=== PATIENT | male | born 1970 | race Caucasian/White ===

== ENCOUNTER → 2022-07-21 15:27 | Outpatient (BNVA) | payer OTHER, SELFPAY | PROVIDERS: PCP Nurse Practitioner Family; Visit Provider Urology | DX: Z13.89 Encounter for screening for other disorder (principal) ==

== ENCOUNTER → 2022-08-27 13:52 | Outpatient (BNVA) | payer OTHER, SELFPAY | PROVIDERS: PCP Nurse Practitioner Family; Visit Provider Urology | DX: Z30.2 Encounter for sterilization (principal); F41.8 Other specified anxiety disorders | CPT/HCPCS: 55250 ==

== ENCOUNTER 2022-09-22 07:27 | Outpatient (REF) | payer OTHER, SELFPAY ==
[2022-09-22 11:23] LABS: MANUAL DIFF FLAG NO
[2022-09-22 11:36] LABS: Basophils Percent Auto 0.5 % (0-2); Eosinophils Absolute Auto 0.2 X10*3/uL (0.0-0.4); Eosinophils Percent Auto 2.8 % (0-4); Hematocrit 44.5 % (42.0-52.0); Hemoglobin 14.4 g/dl (14.0-18.0); Imm Gran Abs Auto 0.02 X10*3/uL (0.00-0.03); Imm Gran Pct Auto 0.3 % (0.0-0.4); Lymphocytes Absolute Auto 2.6 X10*3/uL (1.2-4.9); Lymphocytes Percent Auto 35.4 % (20-40); Mean Corpuscular HGB Conc 32.4 g/dl (31.0-36.0); Mean Corpuscular Hemoglobin 30.4 pg (27.0-33.0); Mean Corpuscular Volume 93.9 fL (80.0-98.0); Mean Platelet Volume 11.1 fL (9.4-12.4); Monocytes Absolute Auto 0.6 X10*3/uL (0.1-1.2); Monocytes Percent Auto 7.8 % (2-11); Neutrophils Absolute Auto 3.9 x10*3/uL (2.0-8.3); Neutrophils Percent Auto 53.2 % (45-73); Platelet Count 191 X10*3/uL (160-400); Red Blood Count 4.74 X10*6/uL (4.60-5.80); Red Cell Distribution Width 13.3 % (11.0-16.0); White Blood Count 7.4 X10*3/uL (4.8-10.8)
[2022-09-22 11:49] LABS: Appearance Urine Clear; Color Urine Dark Yellow; Glucose Urine UA Negative (Negative); Leukocyte Esterase Urine Negative (Negative); Nitrite Urine Negative (Negative); PH 5.5 (5.0-9.0); Specific Gravity - Urine >= 1.030 (1.005-1.025); UMIC TRIGGER UACC YES; Urine Blood Negative (Negative); Urine Ketones Trace mg/dL (Negative); Urine Protein 100 (2+) mg/dL (Neg-Trace)
[2022-09-22 11:52] LABS: Bacteria Urine None Seen (None Seen); RBC Urine 0-2 /HPF (0-2); Squamous Epithelial Cell Urine 0-2 /HPF (0-2); WBC Urine 0-5 /HPF (0-5)
[2022-09-22 12:12] LABS: Alanine Aminotransferase 97 U/L (0-40); Albumin Level 3.9 g/dL (3.5-5.0); Alkaline Phosphatase 67 U/L (39-117); Anion Gap 12 (12-20); Aspartate Amino Transferase 41 U/L (5-37); Bilirubin Total 0.8 mg/dL (0.0-1.0); Blood Urea Nitrogen 17 mg/dL (9-16); Calcium 9.4 mg/dL (8.4-10.2); Carbon Dioxide 28 mmol/L (22-29); Chloride 106 mmol/L (96-108); Cholesterol 140 mg/dL; Estimated Glomerular Filt Rate > 60; Glucose Fasting 84 mg/dL (60-99); HDL Cholesterol 43 mg/dL; LDL Cholesterol Calculated 86 mg/dl; Sodium 142 mmol/L (135-145); Total Protein 6.1 g/dL (6.5-8.0); Triglycerides 59 mg/dL
[2022-09-22 12:19] LABS: TSH reflex Free T4 21.61 uIU/mL (0.32-4.0)
[2022-09-22 12:27] LABS: Prostate Specific Antigen Scr 0.75 ng/mL (<0.05-4.0)
[2022-09-22 13:27] LABS: Free T4 (Free Thyroxine) 1.21 ng/dL (0.71-1.85)
== END 2022-09-22 07:28 | disposition home or self-care (01) ==
LOC: HO.HMGCLDS 07:27
PROVIDERS: PCP Nurse Practitioner Family; Visit Provider Nurse Practitioner Family
DX: Z00.00 Encounter for general adult medical examination without abnormal findings (principal); Z12.5 Encounter for screening for malignant neoplasm of prostate; R94.6 Abnormal results of thyroid function studies; R00.1 Bradycardia, unspecified
CPT/HCPCS: 36415; 80053; 80061; 81001; 84153; 84439; 84443; 85025

== ENCOUNTER 2022-10-13 07:47 | Outpatient (REF) | payer OTHER, SELFPAY ==
--- NOTE | ~2022-10-13 | US_ITS ---
EXAMINATION: US ABDOMEN COMPLETE CLINICAL INFORMATION: Abnormal levels of other serum enzymes. COMPARISON: None available. TECHNIQUE: Real-time imaging of the abdominal viscera. FINDINGS: PANCREAS: Visualized portions of the pancreas are unremarkable. The pancreatic tail is obscured by bowel gas. ABDOMINAL AORTA: Visualized aorta is normal in caliber however portions are obscured by bowel gas. INFERIOR VENA CAVA: Visualized portions are normal. LIVER: Normal. The liver is normal in size. The liver contour is normal. Parenchymal echogenicity is normal. No focal hepatic lesion. There is no intrahepatic biliary duct dilatation seen. GALLBLADDER: Normal. The gallbladder is physiologically distended without evidence of stones, sludge, polyps, wall thickening or pericholecystic fluid. COMMON BILE DUCT: Normal in caliber measuring 0.3 cm in diameter. RIGHT KIDNEY: Normal. No hydronephrosis. No renal calculi or focal parenchymal lesions. The kidney measures 11.5 cm in maximum dimension. LEFT KIDNEY: Normal. No hydronephrosis. No renal calculi or focal parenchymal lesions. The kidney measures 11.7 cm in maximum dimension. SPLEEN: Normal. The spleen measures 10.7 cm in maximum dimension. FREE FLUID: None. US/US abdomen complete IMPRESSION: Portions of the pancreas and aorta were obscured by bowel gas. Otherwise unremarkable abdominal ultrasound.
== END 2022-10-13 07:48 | disposition home or self-care (01) ==
LOC: HO.US 07:47
PROVIDERS: PCP Nurse Practitioner Family; Visit Provider Nurse Practitioner Family
DX: R74.8 Abnormal levels of other serum enzymes (principal)
CPT/HCPCS: 76700

== ENCOUNTER 2022-10-15 13:26 | Outpatient (REF) | payer OTHER, SELFPAY ==
[2022-10-15 16:39] LABS: Appearance Urine Turbid; Color Urine Dark Yellow; Glucose Urine UA Negative (Negative); Leukocyte Esterase Urine Negative (Negative); Nitrite Urine Negative (Negative); PH 5.5 (5.0-9.0); Specific Gravity - Urine >= 1.030 (1.005-1.025); Urine Blood Negative (Negative); Urine Ketones Trace mg/dL (Negative); Urine Protein Negative (Neg-Trace)
[2022-10-16 05:15] LABS: HBc Num1 0.07 S/CO (0.00-0.79); HBsAGNum1 0.36 S/CO (0.00-0.99); Hepatitis A Antibody IgM 0.24 Index (0-0.79); Hepatitis B Core Antibody Nonreactive (Nonreactive); Hepatitis B Surface Antigen Negative (Negative); ~HepC Num1 0.06 S/CO (0.00-0.79); ~Hepatitis A Antibody IgM Nonreactive (Nonreactive); ~Hepatitis B Surface Antibody NONREACTIVE (Nonreactive); ~Hepatitis C Antibody Nonreactive (Nonreactive)
== END 2022-10-15 13:27 | disposition home or self-care (01) ==
LOC: HO.HMGCLDS 13:26
PROVIDERS: PCP Nurse Practitioner Family; Visit Provider Nurse Practitioner Family
DX: R80.9 Proteinuria, unspecified (principal); R74.8 Abnormal levels of other serum enzymes
CPT/HCPCS: 36415; 81003; 86704; 86706; 86709; 86803; 87340

== ENCOUNTER 2022-10-17 08:00 | Outpatient (REF) | payer OTHER, SELFPAY ==
[2022-10-17 18:02] LABS: Creatinine, mg/dL 133.28; Protein mg/dL < 7 mg/dL
[2022-10-17 18:46] LABS: Creatinine, 24Hr Urine 2.1 G/Day (1.0-2.0); Protein 24 Hr Urine < 112 mg/Day (<150); Total Volume 24 Hour Urine 1600 mL
== END 2022-10-17 08:01 | disposition home or self-care (01) ==
LOC: HO.HMGCLNP 08:00
PROVIDERS: PCP Nurse Practitioner Family; Visit Provider Nurse Practitioner Family
DX: R80.9 Proteinuria, unspecified (principal)
CPT/HCPCS: 84156

== ENCOUNTER 2023-01-04 09:04 | Outpatient (REF) | payer OTHER, SELFPAY ==
[2023-01-04 12:29] LABS: TSH reflex Free T4 7.51 uIU/mL (0.32-4.0)
== END 2023-01-04 09:05 | disposition home or self-care (01) ==
LOC: HO.HMGCLDS 09:04
PROVIDERS: PCP Nurse Practitioner Family; Visit Provider Nurse Practitioner Family
DX: R94.6 Abnormal results of thyroid function studies (principal)
CPT/HCPCS: 36415; 84439; 84443

== ENCOUNTER 2023-06-21 13:52 | Outpatient (AMB) | payer BC, SELFPAY ==
[2023-06-21 13:57] VITALS: BP 122/74; PULSE 46; O2SAT 96; BMI 34.7
--- NOTE | 2023-06-21 13:57 | A.OFFPC_ITS ---
Vital Signs 06/21/23 13:57 Height 6 ft 3 in Weight 278 lb BMI 34.7 BP 122/74 Blood Pressure Location Lt brachial Position Sitting Pulse 46 L Pulse Source Pulse Oximeter Pulse Oximetry (%) 96 Oxygen Delivery Method Room Air Intake Visit Reasons: PE Intake Note: pt is here for annual exam, patient states he has a concern of head pain on left side. pt states last colonocopy was done at [facility] last year Director Medical Required: No Accompanied by: Self / Same As Patient Allergies codeine Allergy (Mild, Verified 06/21/23 16:39) Hives Sulfa (Sulfonamide Antibiotics) Allergy (Mild, Verified 06/21/23 16:39) Hives Medication List - Last Reconciled 06/21/23 by Erick Schaefer, BROADCAST JOURNALIST- amlodipine 10 mg PO DAILY atorvastatin 40 mg PO BEDTIME 90 days levothyroxine 200 mcg PO DAILY levothyroxine 25 mcg PO DAILY metoprolol succinate ER 12.5 mg (1/2 x 25 mg) PO DAILY 90 days [id number] [id number] mcg (Centrum Silver Men) 1 tab PO DAILY 90 days Tobacco use date assessed: 06/21/23 Dental Screening Dental Screen Date: 06/21/23 Did you have a dental visit in the last 12 months?: No Did you have a dental problem in the last 6 months where you did not have access to dental care?: No Was dental information given to patient?: Patient declined HPI PE HPI Details Pt is here for a PE. Will order labs. Colon screen is up to date. PSA is up to date. Denies dribbling with urination, weak stream, and frequent nocturia. Pt has a hx of 1st degree AV block and RBBB. He reports that he has seen cardiology for this in the past, will track down notes. Will refer back to cardiology. Pt's blood pressure is stable today, pt is bradycardic. Will stop metoprolol and start losartan 25mg. Denies chest pain, shortness of breath, headache, dizziness, and blurred vision. TSH was elevated. Pt is taking levothyroxine 225mcg. He reports taking this regularly. +1 pitting edema to BLE, ? if related to amlodipine. Highly encouraged pt to get his labs drawn in the near future. Will refer for LDCT (pack per day since age 14). [facility] Medical History (Updated 06/21/23 @ 14:58 by FAM Resendiz) RBBB Hx of thyroid irradiation Graves disease Surgical History No pertinent past surgical history Social History Housing: House Patient Tobacco Use Status: Current everyday Tobacco user Cigarettes Per Day: 15 e-Cigarette/Vaping Use: Never Used Second Hand Smoke Exposure: Yes service: No Current occupational status: employed Current occupation: [employer] Current occupational exposures/hazards: Yes Cognitive needs: No Hearing needs: No Vision needs: No Questionnaire PHQ-9 Over the last 2 weeks, how often have you been bothered by any of the following problems? 1. Little interest or pleasure in doing things: not at all 2. Feeling down, depressed, or hopeless: not at all 3. Trouble falling or staying asleep, or sleeping too much: not at all 4. Feeling tired or having little energy: not at all 5. Poor appetite or overeating: not at all 6. Feeling bad about yourself - or that you are a failure or have let yourself or your family down: not at all 7. Trouble concentrating on things, such as reading the newspaper or watching television: not at all 8. Moving or speaking so slowly that other people could have noticed. Or the opposite - being so fidgety or restless that you have been moving around a lot more than usual: not at all 9. Thoughts that you would be better off or of hurting yourself in some way: not at all Total score: 0 Depression Screening Interpretation: Negative Depression Screening Done: Yes 22170 - PHQ-9 Billing: Yes Source: Developed by Drs. Jonathan Shin, Nery Brennan, Shadi Leon and colleagues, with an educational robyn from [employer] Thrive Questionnaire Date Thrive assessed: 06/21/23 I am a: Patient What is your living situation today?: I have a steady place to live Within the past 12 months, did the food you bought not last and you didn't have the money to get more?: Never true Within the past 12 months, did you worry whether your food would run out before you got money to buy more?: Never true Do you have trouble paying for medicines?: No Do you have trouble getting transportation to medical appointments?: No Do you have trouble paying your heating and electricity bill?: No Do you have trouble taking care of your child, family member or friend?: No Do you have trouble with day-to-day activities such as bathing, preparing meals, shopping, managing finances, etc.?: No Are you currently unemployed and looking for a job?: No Are you interested in more education?: No Please select the resources that you would like help with: None Currently or been in a relationship where the following occur: no concerns reported THRIVE Score: 0 PAULA-7 AMB Questionnaire PAULA-7 Date PAULA - 7 assessed: 06/21/23 Feeling nervous, anxious, or on edge: 0 = Not at all Not being able to stop or control worryin = Not at all Worrying too much about different things: 0 = Not at all Trouble relaxin = Not at all Being so restless that it is hard to sit still: 0 = Not at all Becoming easily annoyed or irritable: 3 = Nearly every day Feeling afraid as if something awful might happen: 0 = Not at all Total PAULA-7 score (0-4 normal; 5-9 mild; 10-14 moderate; 15-21 severe): 3 Source: Developed by Drs. Jonathan Shin, Nery Brennan, Shadi Leon and colleagues, with an educational robyn from [employer] PAULA-7 Assessment Billing PAULA-7 Assessment Tool: PAULA-7 Assessment 91731 Review of Systems Const Denies chills and Denies fever(s) Eyes Denies blurry vision ENT Denies vertigo, Denies dizziness and Denies sore throat Card Denies chest pain at rest, Denies chest pain with activity, Denies diaphoresis, Denies dyspnea and Denies dyspnea on exertion Resp Denies cough, Denies dyspnea, Denies dyspnea on exertion and Denies wheezing GI Denies abdominal pain, Denies melena, Denies hematochezia, Denies constipation, Denies diarrhea and Denies loose stools Denies hematuria Musc Denies numbness and Denies tingling Skin/Breast Denies lesions Neuro Denies vertigo, Denies dizziness, Denies numbness and Denies tingling Psych Denies anxiety, Denies depression, Denies homicidal ideation, Denies suicidal ideation and Denies other (substance abuse) Aller/Immun Denies wheezing Physical exam (Primary Care) Vital Signs: Last Vital Signs Pulse 46 L 06/21/23 13:57 BP 122/74 06/21/23 13:57 Pulse Ox 96 06/21/23 13:57 Oxygen Delivery Method Room Air 06/21/23 13:57 BMI result Body Mass Index 34.7 Tobacco/Smoking Status: Tobacco use Status Tobacco use date assessed 06/21/23 06/21/23 13:58 Patient Tobacco Use Status Current everyday Tobacco 06/21/23 13:58 e-Cigarette/Vaping Use Never Used 06/21/23 13:58 PHQ-9: PHQ-9 Score PHQ-9: Total score 0 06/21/23 14:11 Depression Screening Interpretation: Negative Thrive Assessment: Date of Thrive Assessment Date Thrive assessed 06/21/23 06/21/23 14:08 Currently or been in a relationship where the following occur: no concerns reported Const General: cooperative Nutritional Appearance: obese Orientation/consciousness: patient oriented x3 HENMT Head: Yes normal to inspection, Yes normocephalic and Yes atraumatic Ears: TM's normal bilaterally Eyes General: appearance normal, both eyes and all related structures Alignment and Position: alignment normal and position normal Neck Neck: Yes normal visual inspection and Yes no lymphadenopathy Thyroid: Thyroid normal Resp Effort & Inspection: normal respiratory effort Auscultation: clear to auscultation bilaterally and diminished lung sounds Cardio Rate: bradycardic Heart sounds: S1 normal heart sound present, S2 normal heart sound present and no murmurs GI Palpation (GI): Soft to palpation and nontender Auscultation: normal bowel sounds Skin Rashes: no rashes Neuro General: patient oriented x3, moves all extremities, no focal motor deficits and deep tendon reflexes 2+ bilaterally Romberg Test: Negative Extrem Right lower extremity: edema Details: pitting and 1+ Left lower extremity: edema Details: pitting and 1+ Psych Appearance: grossly normal Mental Status: mental status grossly normal Speech and movement: Normal speech and movement present Affect: normal affect Attitude: cooperative Thought process: Normal thought process present Thought content: Normal thought content present Insight: Good insight present (Psych) Judgement: Good judgement present (Psych) Assessment and Plan Assessment & Plan (1) Smoker: Code(s): F17.200 - Nicotine dependence, unspecified, uncomplicated Plan: Referred to thoracic (2) Physical exam: Code(s): Z00.00 - Encounter for general adult medical examination without abnormal findings Plan: Labs ordered (3) RBBB: Code(s): I45.10 - Unspecified right bundle-branch block Plan: Referred to cardiology (4) Bradycardia: Code(s): R00.1 - Bradycardia, unspecified Plan: Referred to cardiology, EKG performed Plan The patient agreed to the use of a medical insurance collector for this encounter. Scribed for FAM Moses by Audelia Aparicio medical insurance collector, on 06/21/2023 at 14:10 EST. Orders: Orders Complete Blood Count Auto Diff Today Z00.00 - Encounter for general adult medical examination without abnormal findings TSH reflex Free T4 Today Z00.00 - Encounter for general adult medical examination without abnormal findings UA CC w/rflx Micro + Cult Today Z00.00 - Encounter for general adult medical examination without abnormal findings Lipid Panel Today Z00.00 - Encounter for general adult medical examination without abnormal findings Comprehensive [place]. Panel Fast Today Z00.00 - Encounter for general adult medical examination without abnormal findings Prostate Specific Antigen Scr Today Z12.5 - Encounter for screening for malignant neoplasm of prostate AMB EKG-In Office Today Z00.00 - Encounter for general adult medical examination without abnormal findings Referrals Thoracic Surgery Referral F17.200 - Nicotine dependence, unspecified, uncomplicated Cardiology Referral I45.10 - Unspecified right bundle-branch block, R00.1 - Bradycardia, unspecified Medications: New losartan 25 mg PO DAILY 90 tabs 0RF 90 days Refilled amlodipine 10 mg PO DAILY 90 tabs 1RF atorvastatin 40 mg PO BEDTIME 90 tabs 1RF 90 days levothyroxine take with levothyroxine 25mcg daily to equal 225mcg 200 mcg PO DAILY 90 tabs 0RF levothyroxine to take this with his 200mcg dose for a total of 225mcg daily 25 mcg PO DAILY 90 tabs 0RF Discontinued metoprolol succinate ER Discontinued Reason: Doctor's Order 12.5 mg (1/2 x 25 mg) PO DAILY 90 days 45 tabs 1RF diazepam Take medication after arrival at office Discontinued Reason: Doctor's Order 2 mg PO BID 1 day PRN 2 tabs 0RF anxiety F41.8 - Other specified anxiety disorders Coding Level of Care Code Est Pt Prev Care 40-64y(08787) Diagnoses Smoker F17.200 Physical exam Z00.00 RBBB I45.10 Bradycardia R00.1 Additional Codes PAULA-7 Assessment Billing - PAULA-7 Assessment Tool: PAULA-7 Assessment 36529 ([id number])
== END 2023-06-21 15:18 | disposition home or self-care (01) ==
PROVIDERS: Visit Provider Nurse Practitioner Family
DX: Z00.00 Encounter for general adult medical examination without abnormal findings (principal); F17.210 Nicotine dependence, cigarettes, uncomplicated; I45.10 Unspecified right bundle-branch block; R00.1 Bradycardia, unspecified
CPT/HCPCS: 93000; 99396

== ENCOUNTER 2023-06-28 06:17 | Outpatient (REF) | payer BC, SELFPAY ==
[2023-06-28 11:16] LABS: Appearance Urine Clear; Color Urine Yellow; Glucose Urine UA Negative (Negative); Leukocyte Esterase Urine Negative (Negative); Nitrite Urine Negative (Negative); PH 5.5 (5.0-9.0); Specific Gravity - Urine 1.015 (1.005-1.025); Urine Blood Negative (Negative); Urine Ketones 15 mg/dL (Negative); Urine Protein Negative (Neg-Trace)
[2023-06-28 11:18] LABS: MANUAL DIFF FLAG NO
[2023-06-28 11:30] LABS: Basophils Percent Auto 0.5 % (0-2); Eosinophils Absolute Auto 0.2 X10*3/uL (0.0-0.4); Eosinophils Percent Auto 2.6 % (0-4); Hematocrit 48.6 % (42.0-52.0); Hemoglobin 16.1 g/dl (14.0-18.0); Imm Gran Abs Auto 0.02 X10*3/uL (0.00-0.03); Imm Gran Pct Auto 0.3 % (0.0-0.4); Lymphocytes Absolute Auto 1.9 X10*3/uL (1.2-4.9); Lymphocytes Percent Auto 25.5 % (20-40); Mean Corpuscular HGB Conc 33.1 g/dl (31.0-36.0); Mean Corpuscular Hemoglobin 30.6 pg (27.0-33.0); Mean Corpuscular Volume 92.2 fL (80.0-98.0); Mean Platelet Volume 11.3 fL (9.4-12.4); Monocytes Absolute Auto 0.6 X10*3/uL (0.1-1.2); Monocytes Percent Auto 7.8 % (2-11); Neutrophils Absolute Auto 4.8 x10*3/uL (2.0-8.3); Neutrophils Percent Auto 63.3 % (45-73); Platelet Count 184 X10*3/uL (160-400); Red Blood Count 5.27 X10*6/uL (4.60-5.80); Red Cell Distribution Width 12.7 % (11.0-16.0); White Blood Count 7.6 X10*3/uL (4.8-10.8)
[2023-06-28 12:52] LABS: Prostate Specific Antigen Scr 1.16 ng/mL (<0.05-4.0)
[2023-06-28 13:00] LABS: Alanine Aminotransferase 37 U/L (0-40); Albumin Level 4.3 g/dL (3.5-5.0); Alkaline Phosphatase 73 U/L (39-117); Anion Gap 12 (12-20); Aspartate Amino Transferase 28 U/L (5-37); Bilirubin Total 0.8 mg/dL (0.0-1.0); Blood Urea Nitrogen 14 mg/dL (9-16); Calcium 9.4 mg/dL (8.4-10.2); Carbon Dioxide 27 mmol/L (22-29); Chloride 107 mmol/L (96-108); Cholesterol 145 mg/dL (<200); Estimated Glomerular Filt Rate > 60; Glucose Fasting 87 mg/dL (60-99); HDL Cholesterol 56 mg/dL (>40); LDL Cholesterol Calculated 74 mg/dL (<100); Sodium 142 mmol/L (135-145); Total Protein 6.8 g/dL (6.5-8.0); Triglycerides 76 mg/dL (<150)
[2023-06-28 13:24] LABS: TSH reflex Free T4 1.24 uIU/mL (0.32-4.0)
== END 2023-06-28 06:18 | disposition home or self-care (01) ==
LOC: HO.HMGCLDS 06:17
PROVIDERS: PCP Nurse Practitioner Family; Visit Provider Nurse Practitioner Family
DX: Z00.00 Encounter for general adult medical examination without abnormal findings (principal); Z12.5 Encounter for screening for malignant neoplasm of prostate; R94.6 Abnormal results of thyroid function studies; R74.8 Abnormal levels of other serum enzymes
CPT/HCPCS: 36415; 80053; 80061; 81003; 84153; 84443; 85025

== ENCOUNTER 2023-07-23 08:52 | Outpatient (AMB) | payer BC, SELFPAY ==
--- NOTE | 2023-07-23 07:47 | MHC.OFFVIS ---
Intake Visit Reasons: Current Smoker Allergies codeine Allergy (Mild, Verified 06/21/23 16:39) Hives Sulfa (Sulfonamide Antibiotics) Allergy (Mild, Verified 06/21/23 16:39) Hives HPI HPI Current Smoker: Details: Initial visit for this 53yo smoker with a 35+PYH. Patient has been smoking since age 15 for 38 years at 1ppd. . Denies marijuana use. Denies second hand smoke exposure. Denies exposure to chemicals or substances like asbestos. . Denies known family history of lung cancer. Denies personal history of cancers. Denies chest CT in last year. . Denies recent travel outside the [place]. Denies recent respiratory illness or recent hospitalization for respiratory issues. Reports testing positive for COVIDx 2. Admits receiving COVID Vaccine. x2. . Denies fever, chills, new/worsening cough, hemoptysis, hoarseness or dysphagia. Denies significant chest pain, significant dyspnea or unintentional weight loss. Patient Lung Cancer Screening Questionnaire reviewed with patient by provider. . Shared Decision Making Completed. Patient meets criteria. Discussed in detail with patient, the risk vs benefit of LDCT screening. Patient consents to proceed with scan. Discussed smoking cessation. Thinking about quitting - declining referral. [facility] Medical History (Updated 07/23/23 @ 09:10 by Aliyah Coffey PA-C) Nicotine dependence, cigarettes, uncomplicated RBBB Hx of thyroid irradiation Graves disease Surgical History (Updated 07/20/23 @ 11:28 by Aliyah Coffey PA-C) History of colonoscopy Social History (Updated 07/23/23 @ 09:11 by Aliyah Coffey PA-C) Housing: House Patient Tobacco Use Status: Current everyday Tobacco user Cigarettes Per Day: 20 Years Smoked: -onset 15yo, 1ppd x 38yrs, 35pyh) e-Cigarette/Vaping Use: Never Used Second Hand Smoke Exposure: Yes service: No Current occupational status: employed Current occupation: [employer] Current occupational exposures/hazards: Yes Cognitive needs: No Hearing needs: No Vision needs: No Assessment & Plan Assessment & Plan (1) Nicotine dependence, cigarettes, uncomplicated: Comment: (smoker -onset 15yo, 1ppd x 38yrs, 35pyh) Code(s): F17.210 - Nicotine dependence, cigarettes, uncomplicated Category: Medical Plan: - SDM visit completed today in office. - Patient meets criteria for LDCT for lung cancer screening purposes and is asymptomatic. - Smoking cessation counseling offered. Patients can always call [phone]. - Will arrange for a LDCT scan of the chest for screening purposes at [facility]. - Risks, benefits, and alternatives were discussed in detail and the patient agrees to proceed. - Risks discussed include but are not limited to: radiation exposure, anxiety during testing and while awaiting results, false negatives, false positives and possibility of additional intervention such as further imaging or surgical procedures for benign disease. - Benefits are obviously detection of lung cancer at an early stage which can lead to improved outcomes. - Discussed the importance of screening program compliance with adherence to yearly LDCT scan as scheduled - or sooner interval scans for personalized screening regimen. - Discussed follow up plan. Our office will send a letter discussing results and if needed set up phone call and office visit based on CT findings. - Patient educated on results categorization and the management decisions for suspicious findings potentially found on the screening LDCT scan. Any patient with a Lung RADS score of 3 or 4 will be reviewed by a multidisciplinary team at [facility] to form a plan of action in regards to scan findings. - If further work up is warranted for a suspicious lung finding this will be followed by the Lung Cancer Screening program in conjunction with the Thoracic Surgery Department at [facility]. - A copy of the office note and LDCT will be sent to the patient's PCP - as well as documentation on any associated further plans of care. - Incidental findings on LDCT are the PCP's responsibility. These findings are indicated with an S finding on the LDCT Assessment. A note discussing the findings will be sent to the PCP who is then responsible for further management. - All questions answered.?
== END 2023-07-23 10:16 | disposition home or self-care (01) ==
PROVIDERS: PCP Nurse Practitioner Family; Referring Provider Nurse Practitioner Family; Visit Provider Physician Assistant Medical
DX: F17.210 Nicotine dependence, cigarettes, uncomplicated (principal)
CPT/HCPCS: G0296

== ENCOUNTER 2023-07-23 09:26 | Outpatient (REF) | payer BC, SELFPAY ==
--- NOTE | ~2023-07-23 | CT_ITS ---
EXAMINATION: CT CHEST SCREENING CLINICAL INFORMATION: Nicotine dependence, current smoker. History of 1 pack per day x38 years. COMPARISON: None available. TECHNIQUE: Multidetector volumetric CT imaging of the chest is performed without contrast using low dose technique. Additional 2D coronal and sagittal reformatted images and axial 3D maximum intensity projection (MIP) images are generated on the CT workstation. This CT examination was performed using dose optimization techniques as appropriate, variously including the following: *Automated exposure control *Adjustment of mA and/or kV according to patient size (this includes techniques or standardized protocols for targeted exams where dose is matched to indication/reason for exam; i.e. extremities or head) *Use of iterative reconstruction technique DLP: 73 mGy-cm FINDINGS: LUNGS: Mild emphysematous changes are present along with some mild bronchial thickening. No concerning lung nodules are seen. There is a 4 mm polygonal right lower lobe perifissural nodule present consistent with a lymph node (5:243), another smaller 3 mm similar density present along the major fissure in the right middle lobe (5:293). There is a 2 mm punctate nodule on the left upper lobe, possibly even calcified (5:121). No worrisome pulmonary nodules that would need short-term followup are seen. MEDIASTINUM: The mediastinum is normal. CORONARY ARTERY CALCIFICATION: Mild PLEURA: There is no pleural effusion. No pleural mass or thickening. AXILLA: No lymphadenopathy. UPPER ABDOMEN: Unremarkable OSSEOUS STRUCTURES: Unremarkable. CT/CT lung screening IMPRESSION: No evidence of malignancy. ASSESSMENT: Lung-RADS category 2: Benign RECOMMENDATION: Routine annual low-dose CT screening in 12 months.
== END 2023-07-23 09:27 | disposition home or self-care (01) ==
LOC: HO.CT 09:26
PROVIDERS: PCP Nurse Practitioner Family; Visit Provider Physician Assistant Medical
DX: Z12.2 Encounter for screening for malignant neoplasm of respiratory organs (principal); F17.210 Nicotine dependence, cigarettes, uncomplicated
CPT/HCPCS: 71271; G0296

== ENCOUNTER 2023-10-25 14:43 | Outpatient (AMB) | payer BC, SELFPAY ==
[2023-10-25 14:48] VITALS: BP 140/62; PULSE 45; BMI 32.8
--- NOTE | 2023-10-25 14:48 | MHC.OFFVIS ---
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 Previously, it seems he might have seen [facility] for workup. From his own description, possibly seen for PVCs and underwent workup including echocardiogram/stress test other testing but findings are not clear. Patient himself does not really have any overt symptoms. He has unlimited physical activity and exercise tolerance. Not known to have any coronary disease myocardial infarction or cardiomyopathy. He is overweight. Chronic smoker. Per patient, mild sleep apnea and not on CPAP. He believes he was on beta-blockers presumably for the PVCs. Apparently it was making him very tired and then it was stopped. [facility] Medical History (Updated 10/25/23 @ 15:04 by Lev Dubose MD) Nicotine dependence, cigarettes, uncomplicated RBBB Hx of thyroid irradiation Graves disease Surgical History History of colonoscopy Family History (Updated 10/25/23 @ 15:02 by Lev Dubose MD) Father No problems noted. Mother No problems noted. Social History (Updated 10/25/23 @ 14:54 by Shante Adler CMA) Housing: House Alcohol intake: current Comment: social Patient Tobacco Use Status: Current everyday Tobacco user Cigarettes Per Day: 20 Years Smoked: -onset 15yo, 1ppd x 38yrs, 35pyh) e-Cigarette/Vaping Use: Never Used Second Hand Smoke Exposure: Yes service: No Current occupational status: employed Current occupation: [employer] Current occupational exposures/hazards: Yes Cognitive needs: No Hearing needs: No Vision needs: No Review of Systems Const Denies chills, Denies daytime sleepiness, Denies fatigue, Denies fever(s), Denies poor appetite, Denies snoring, Denies stops breathing during sleep, Denies weakness, Denies weight gain and Denies weight loss Eyes Denies loss of vision ENT Denies dizziness and Denies hearing loss Card Denies chest pain, Denies irregular heart rhythm, Denies claudication, Denies leg edema, Denies lightheadedness, Denies palpitations, Reports dyspnea on exertion and Denies orthopnea Resp Denies cough, Denies excessive phlegm production, Reports dyspnea on exertion, Denies snoring and Denies wheezing GI Denies abdominal pain, Denies hematochezia, Denies change in bowel habits, Denies nausea and Denies vomiting Denies dysuria and Denies urinary frequency Musc Denies arthralgias, Denies muscle weakness, Denies numbness and Denies other Skin/Breast Denies nail changes and Denies rash Neuro Denies Abnormal speech present, Denies dizziness, Denies loss of vision, Denies memory loss, Denies numbness and Denies weakness Psych Denies depression and Denies memory loss Endo Denies fatigue and Denies palpitations Rogelio/Lymph Denies easy bruising Aller/Immun Denies wheezing Physical Exam Vital Signs: Last Vital Signs Pulse 33 L 10/25/23 14:48 BP 140/62 H 10/25/23 14:48 BMI result Body Mass Index 32.8 Const General: comfortable and no acute distress Orientation/consciousness: patient oriented x3 HEENT Other: Unremarkable Head: Yes normal to inspection Neck Neck: Yes normal visual inspection Chest Chest palpation & inspection: normal inspection of the chest Resp Auscultation: clear to auscultation bilaterally Cardio Palpation: normal PMI Heart sounds: S1 normal heart sound present, S2 normal heart sound present, no gallops, no murmurs and no rubs GI Palpation (GI): Soft to palpation Back/Spine/Pelvis Other: unremarkable Skin General skin exam: no rashes or lesions noted Neuro General: patient oriented x3 Speech: No Abnormal speech present Extrem General: Yes normal to inspection Psych Mental Status: mental status grossly normal Assessment & Plan Assessment & Plan (1) PVC (premature ventricular contraction): Code(s): I49.3 - Ventricular premature depolarization Category: Medical (2) Bradycardia: Code(s): R00.1 - Bradycardia, unspecified Category: Medical Plan In the EKG from June, sinus bradycardia 54/Min; borderline AK prolongation at 240 milliseconds; normal corrected QT at 436 millisecond; PVCs. Pathophysiology of the above discussed with patient. Will need to obtain old records from [facility]. Patient believes he already had a stress test there. Otherwise, get an echocardiogram/Holter for further evaluation. Based on this, may need cardiac MRI as well. Will follow-up after the above. Orders: Orders ECG 3 day holter monitor Today I49.3 - Ventricular premature depolarization CA echo transthoracic complete Today I49.3 - Ventricular premature depolarization Coding Level of Care Code New Pt Level 4 (25208) Diagnoses PVC (premature ventricular contraction) I49.3 Bradycardia R00.1
== END 2023-10-25 15:29 | disposition home or self-care (01) ==
PROVIDERS: PCP Nurse Practitioner Family; Visit Provider Internal Medicine
DX: I49.3 Ventricular premature depolarization (principal); R00.1 Bradycardia, unspecified
CPT/HCPCS: 99204

== ENCOUNTER → 2023-10-25 14:43 | Outpatient (BNVA) | payer BC, SELFPAY | PROVIDERS: PCP Nurse Practitioner Family; Visit Provider Internal Medicine ==

== ENCOUNTER → 2023-12-10 13:35 | Outpatient (REF) | payer BC, SELFPAY ==
--- NOTE | 2023-12-10 13:39 | HM_ITS ---
* Total monitoring time 2 days and 13 hours. * Underlying rhythm is sinus with an average rate of 63/Min. * Frequent ventricular ectopy with a burden of 35%. Evidence of couplets, triplets, bigeminy, trigeminy. Mostly seems unifocal. * Multiple runs noted. Longest run about 15 beats. * No significant pauses or high-grade AV blocks. * No patient markers or diary events. MTDD
--- NOTE | 2023-12-10 13:39 | CA_ITS ---
Transthoracic Echocardiogram Patient (Last, First, Middle): Allan Mcintosh, Gender: Male Date of : 1970 Age: 53 Procedure Date: 12/10/2023 Procedure Type: Transthoracic Echocardiogram Location: OP Height: 190.5 cm Weight: 117.94 kg BSA: 2.45 m2 Heart Rate: 66 bpm BP: 140 / 70 mmHg Ship Pilot: LIBBY Referring MD: Lev Dubose MD Symptoms: I49.3 - Ventricular premature depolarization Study Quality: Fair ECG Rhythm: Sinus with PVCs Conclusions: - The left ventricular systolic function is normal. The calculated ejection fraction is 60% by biplane method. - No obvious valvular pathology seen on this study. Findings Left Ventricle Normal left ventricular cavity size. There is mildly increased left ventricular wall thickness. The left ventricular systolic function is normal. The calculated ejection fraction is 60% by biplane method. There is no evidence of regional wall motion abnormalities. Diastolic function is normal for age. There is moderate septal asymmetric hypertrophy. Right Ventricle Mildly increased right ventricular cavity size. There is normal right ventricular systolic function. Atria The left atrium is mildly dilated. The right atrium is normal in size. Aortic Valve There is a normal trileaflet aortic valve. There is no aortic valve stenosis. There is no aortic valve regurgitation. Mitral Valve The mitral valve appears normal. There is no mitral valve regurgitation. There is no mitral valve stenosis. Pulmonic Valve The pulmonic valve is likely normal. Tricuspid Valve Normal tricuspid valve structure. There is trace tricuspid valve regurgitation. There is no evidence of pulmonary hypertension. Great Vessels The asc aorta and aortic arch are normal in size. Venous The inferior vena cava is normal in size and collapses greater than 50% with inspiration. Pericardium/Pleural There is a trivial pericardial effusion. Prior Study Comparison No prior study available for comparison. Recommendations, Care & Conclusions No obvious valvular pathology seen on this study. Measurements 2D Linear Measurements IVSd: 1.35 0.6-0.9/0.6-1.0 cm LVIDd: 5.13 3.9-5.3/4.2-5.9 cm LVIDd Index: 2.09 2.4-3.2/2.2-3.1 cm/m2 LVIDs: 3.78 2.0-3.6 cm LVPWd: 1.09 0.7-1.1 cm LA Diam: 4.30 2.7-3.8/3.0-4.0 cm LAIDs Index: 1.76 1.5-2.3 cm/m2 LV Mass: 310.74 67-162/88-224 g LV Mass Index: 126.83 43-95/49-115 g/m2 LVOT Diam: 2.60 3.0+(-)1.3 cm 2D Systolic Function EF 4C: 57.70 >55% EF 2C: 63.60 >55% EF BiP: 59.70 >55% Mitral Valve MV Pk E: 0.93 MV PK A: 0.83 MV Decel Time: 262.00 E/A: 1.10 E'Lateral: 9.68 E'Medial: 5.73 E/E' Med: 16.20 E/E' Lat: 9.60 PHT: 77.00 MVA PHT: 2.86 Decel [place]: 3.55 Aortic Valve AoV Pk Antonio: 1.30 AoV Mn Antonio: 0.95 AoV VTI: 0.32 AoV Pk Grad: 7.00 Aov Mn Grad: 4.00 AUTUMN Cont.VTI: 4.11 LVOT LVOT Pk Antonio: 0.99 LVOT Mn Antonio: 0.67 LVOT VTI: 0.25 LVOT Pk Grad: 4.00 LVOT Mn Grad: 3.00 LVOT Diam: 2.60 LVOT Area: 5.31 Diastolic Function MV Pk E: 0.93 MV Pk A: 0.83 E/A: 1.10 E'Medial: 5.73 E/E' Med: 16.20 E' Laterial: 9.68 E/E' Lat: 9.60 Right Ventricle TAPSE (mm): 25.10 TVS' Antonio: 15.60 Tricuspid Valve TR Pk Antonio: 2.34 TR Pk Grad: 22.00 RA Press: 3.00 RVSP: 25.00 Great Vessels Aorta Sinus of Valsalva: 4.40 2.0-3.5 cm Ao Asc: 3.90 2.1-3.4 cm Ao Arch: 3.50 Pulmonary Valve PV Pk Antonio: 0.87 Peak PV Grad: 3.00 Updated in Other Vendor System with Status of Final Lev Dubose MD electronically signed on 12/12/2023 11:28:19 AM with status of Final
== END ==
LOC: HO.CARD 13:35
PROVIDERS: PCP Nurse Practitioner Family; Visit Provider Internal Medicine
DX: I49.3 Ventricular premature depolarization (principal)
CPT/HCPCS: 93242; 93306

== ENCOUNTER → 2023-12-10 13:39 | Outpatient (BNV) | payer BC, SELFPAY | PROVIDERS: PCP Nurse Practitioner Family; Visit Provider Internal Medicine | DX: I49.3 Ventricular premature depolarization (principal) | CPT/HCPCS: 93244; 93306 ==

== ENCOUNTER 2023-12-27 15:22 | Outpatient (AMB) | payer BC, SELFPAY ==
[2023-12-27 15:35] VITALS: BP 134/76; PULSE 46; BMI 34.0
--- NOTE | 2023-12-27 15:35 | MHC.OFFVIS ---
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: No Accompanied by: Self / Same As Patient Allergies codeine Allergy (Mild, Verified 06/21/23 16:39) Hives Sulfa (Sulfonamide Antibiotics) Allergy (Mild, Verified 06/21/23 16:39) Hives Medication List - Last Reconciled 12/27/23 by Irais White NP-C amlodipine 10 mg PO DAILY atorvastatin 40 mg PO BEDTIME 90 days levothyroxine 200 mcg PO DAILY levothyroxine 25 mcg PO DAILY losartan 25 mg PO DAILY 90 days [id number] mcg (Centrum Silver Men) 1 tab PO DAILY 90 days HPI HPI fu echo/monitor: Details: Allan is a 53-year-old male with past medical history of mild obstructive sleep apnea, smoking, right bundle branch block, PVCs who was newer to our office. He recently underwent a Holter monitor and echocardiogram and now presents for follow-up. Today he reports he feels well with only occasional palpitations noted. He has no sustained rapid or irregular heart palpitations. No chest discomfort at rest or with activity. No shortness of breath, PND, orthopnea or edema. No lightheadedness, presyncope, syncope, falls. Reports good activity tolerance. Takes meds as directed. Tells me that in the past when he was on metoprolol XL 50 mg daily he had heart rates into the 30s. [facility] Medical History Nicotine dependence, cigarettes, uncomplicated RBBB Hx of thyroid irradiation Graves disease Surgical History History of colonoscopy Family History Father No problems noted. Mother No problems noted. Social History Housing: House Alcohol intake: current Comment: social Patient Tobacco Use Status: Current everyday Tobacco user Cigarettes Per Day: 20 Years Smoked: -onset 15yo, 1ppd x 38yrs, 35pyh) e-Cigarette/Vaping Use: Never Used Second Hand Smoke Exposure: Yes service: No Current occupational status: employed Current occupation: [employer] Current occupational exposures/hazards: Yes Cognitive needs: No Hearing needs: No Vision needs: No Review of Systems Const All systems reviewed & are unremarkable except as noted in HPI and below Denies chills, Denies fatigue, Denies fever(s), Denies weight gain and Denies weight loss ENT Denies dizziness Card Details: palpitations at times Denies chest pain, Denies leg edema, Denies lightheadedness, Denies palpitations, Denies dyspnea on exertion, Denies orthopnea and Denies other Resp Denies cough and Denies dyspnea on exertion GI Denies hematochezia and Denies change in stool character Musc Denies abnormal gait, Denies muscle weakness, Denies numbness, Denies radiating pain into limb and Denies tingling Neuro Denies abnormal gait, Denies dizziness, Denies numbness and Denies tingling Endo Denies fatigue and Denies palpitations Physical Exam Vital Signs: Last Vital Signs Pulse 46 L 12/27/23 15:35 BP 134/76 12/27/23 15:35 BMI result Body Mass Index 34.0 Const General: cooperative, healthy appearing, comfortable and no acute distress Orientation/consciousness: patient oriented x3 Neck Neck: Yes normal visual inspection and Yes no JVD Resp Effort & Inspection: normal respiratory effort Auscultation: clear to auscultation bilaterally, no crackles, no rales, no rhonchi and no wheezes Cardio Jugular venous distension: no JVD Rate: regular rate Rhythm: regular rhythm Heart sounds: S1 normal heart sound present, S2 normal heart sound present, no murmurs and no rubs Neuro General: patient oriented x3 Extrem General: Yes normal to inspection, No no pedal edema and No calf tenderness Psych Appearance: grossly normal Mental Status: mental status grossly normal Speech and movement: Normal speech and movement present Assessment & Plan Assessment & Plan (1) PVC (premature ventricular contraction): Code(s): I49.3 - Ventricular premature depolarization Category: Medical Plan: History of PVCs, previously seen by [facility]. He reports having bradycardia while on metoprolol XL 50 mg daily. He had been on a lower dose metoprolol until recently. On last visit he reported only occasional brief palpitations. He underwent evaluation with Holter monitor 12/17/2023 showing sinus bradycardia/sinus rhythm, average heart rate 63, heart rate range 42 to 67, frequent PVCs, 35% with short NSVT runs, longest 15 beats. An echocardiogram was done 12/10/2023 showing EF 60%, no valve abnormalities and no regional wall motion abnormalities. Spent time going over the finding frequent PVCs. Unclear cause of his PVCs. With his underlying sinus bradycardia will avoid the use of beta-blockers at this time. Reviewed with Dr. Dubose. Will arrange for diagnostic cardiac catheterization to evaluate for obstructive coronary artery disease. Procedure, risks including bleeding, infection, RAFAELA, RI, stroke reviewed with him. He states understanding and is agreeable to proceed. Will arrange for preprocedure labs, CBC, BMP, PT INR. Will also order a cardiac MRI to evaluate for abnormal muscle, scarring as a cause of PVCs. His cardiology office visit will be 2 weeks post cardiac catheterization. (2) Bradycardia: Code(s): R00.1 - Bradycardia, unspecified Category: Medical Plan: As above (3) RBBB: Code(s): I45.10 - Unspecified right bundle-branch block Category: Medical Plan: Noted on EKG Plan Time spent on chart review, documentation, interview and assessment Orders: Orders Complete Blood Count Auto Diff 12/27/23 I49.3 - Ventricular premature depolarization Basic Metabolic Panel 12/27/23 I49.3 - Ventricular premature depolarization Cardiac Cath LT Diagnostic 12/27/23 I47.29 - Other ventricular tachycardia, I49.3 - Ventricular premature depolarization Prothrombin Time INR 12/27/23 I49.3 - Ventricular premature depolarization MR cardiac morph fnct w con 12/27/23 I47.29 - Other ventricular tachycardia, I49.3 - Ventricular premature depolarization Coding Level of Care Code Est Pt Level 4 (29278) Diagnoses PVC (premature ventricular contraction) I49.3 Bradycardia R00.1 RBBB I45.10 Time Spent (min) 36
== END 2023-12-27 16:50 | disposition home or self-care (01) ==
PROVIDERS: PCP Nurse Practitioner Family; Visit Provider Nurse Practitioner Family
DX: I49.3 Ventricular premature depolarization (principal); I45.10 Unspecified right bundle-branch block; R00.1 Bradycardia, unspecified
CPT/HCPCS: 99214

== ENCOUNTER → 2023-12-27 15:22 | Outpatient (BNVA) | payer BC, SELFPAY | PROVIDERS: PCP Nurse Practitioner Family; Visit Provider Nurse Practitioner Family ==

== ENCOUNTER 2024-01-14 15:58 | Outpatient (REF) | payer BC, SELFPAY ==
[2024-01-14 16:09] LABS: MANUAL DIFF FLAG NO
[2024-01-14 17:09] LABS: Basophils Percent Auto 0.6 % (0-2); Eosinophils Absolute Auto 0.2 X10*3/uL (0.0-0.4); Eosinophils Percent Auto 2.4 % (0-4); Hematocrit 44.5 % (42.0-52.0); Hemoglobin 15.4 g/dl (14.0-18.0); Imm Gran Abs Auto 0.02 X10*3/uL (0.00-0.03); Imm Gran Pct Auto 0.3 % (0.0-0.4); Lymphocytes Absolute Auto 2.1 X10*3/uL (1.2-4.9); Lymphocytes Percent Auto 29.5 % (20-40); Mean Corpuscular HGB Conc 34.6 g/dl (31.0-36.0); Mean Corpuscular Hemoglobin 31.4 pg (27.0-33.0); Mean Corpuscular Volume 90.8 fL (80.0-98.0); Mean Platelet Volume 10.2 fL (9.4-12.4); Monocytes Absolute Auto 0.5 X10*3/uL (0.1-1.2); Monocytes Percent Auto 7.4 % (2-11); Neutrophils Absolute Auto 4.2 x10*3/uL (2.0-8.3); Neutrophils Percent Auto 59.8 % (45-73); Platelet Count 191 X10*3/uL (160-400); Red Cell Distribution Width 13.2 % (11.0-16.0); White Blood Count 7.1 X10*3/uL (4.8-10.8)
[2024-01-14 17:20] LABS: INTERNATIONAL NORM RATIO 0.9 (0.9-1.1)
[2024-01-14 17:41] LABS: Anion Gap 12 (12-20); Blood Urea Nitrogen 24 mg/dL (9-16); Calcium 9.8 mg/dL (8.4-10.2); Carbon Dioxide 29 mmol/L (22-29); Chloride 106 mmol/L (96-108); Estimated Glomerular Filt Rate > 60; Glucose Random 85 mg/dL (60-115); Potassium 4.2 mmol/L (3.3-5.1); Sodium 143 mmol/L (135-145)
[2024-01-14 17:58] LABS: TSH reflex Free T4 11.94 uIU/mL (0.32-4.0)
[2024-01-14 18:50] LABS: Free T4 (Free Thyroxine) 1.17 ng/dL (0.71-1.85)
== END 2024-01-14 15:59 | disposition home or self-care (01) ==
LOC: HO.LAB 15:58
PROVIDERS: PCP Nurse Practitioner Family; Visit Provider Nurse Practitioner Family
DX: I49.3 Ventricular premature depolarization (principal); R79.89 Other specified abnormal findings of blood chemistry
CPT/HCPCS: 36415; 80048; 84439; 84443; 85025; 85610

== ENCOUNTER → 2024-01-20 23:59 | Outpatient (BNV) | payer BC, SELFPAY | PROVIDERS: PCP Nurse Practitioner Family; Visit Provider Internal Medicine Cardiovascular Disease | DX: R93.1 Abnormal findings on diagnostic imaging of heart and coronary circulation (principal); I49.3 Ventricular premature depolarization | CPT/HCPCS: 93458; 99152 ==

== ENCOUNTER 2024-02-07 14:38 | Outpatient (AMB) | payer BC, SELFPAY ==
[2024-02-07 15:04] VITALS: BP 122/70; PULSE 57; BMI 34.2
--- NOTE | 2024-02-07 15:04 | MHC.OFFVIS ---
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: No Allergies codeine Allergy (Mild, Verified 02/07/24 15:11) Hives Sulfa (Sulfonamide Antibiotics) Allergy (Mild, Verified 02/07/24 15:11) Hives Medication List - Last Reconciled 02/07/24 by Irais White NP-C amlodipine 10 mg PO DAILY atorvastatin 40 mg PO BEDTIME 90 days levothyroxine 50 mcg PO DAILY levothyroxine 200 mcg PO DAILY losartan 25 mg PO DAILY 90 days [id number] mcg (Centrum Silver Men) 1 tab PO DAILY 90 days HPI HPI Follow up post: Details: Allan is a 53-year-old male with past medical history of mild obstructive sleep apnea, smoking, right bundle branch block, finding of frequent PVCs who underwent cardiac catheterization for further evaluation and now presents for follow-up. Today he reports that since his procedure he has stopped drinking [employer] energy drinks. He says he was drinking up to 3 per day. Prior to that he was noticing occasional heart palpitations. He has not had any lightheadedness, presyncope, syncope, falls. He has no sustained rapid or irregular heart palpitations. No chest discomfort at rest or with activity. No shortness of breath, PND, orthopnea or edema. Reports good activity tolerance. Takes meds as directed. Last visit he told me he was on metoprolol XL 50 mg daily in the past and he had heart rates into the 30s. His dose had been reduced but he still did not feel well. He says he feels better off of metoprolol. [facility] Medical History Nicotine dependence, cigarettes, uncomplicated RBBB Hx of thyroid irradiation Graves disease Surgical History History of colonoscopy Family History Father No problems noted. Mother No problems noted. Social History Housing: House Alcohol intake: current Comment: social Patient Tobacco Use Status: Current everyday Tobacco user Cigarettes Per Day: 20 Years Smoked: -onset 15yo, 1ppd x 38yrs, 35pyh) e-Cigarette/Vaping Use: Never Used Second Hand Smoke Exposure: Yes service: No Current occupational status: employed Current occupation: [employer] Current occupational exposures/hazards: Yes Cognitive needs: No Hearing needs: No Vision needs: No Review of Systems Const All systems reviewed & are unremarkable except as noted in HPI and below ENT Denies dizziness Card Denies chest pain, Denies chest pain at rest, Denies chest pain with activity, Denies rapid heart rate, Denies pedal edema, Denies edema, Denies leg edema, Denies lightheadedness, Denies palpitations, Denies dyspnea, Denies dyspnea on exertion and Denies orthopnea Resp Denies cough, Denies dyspnea and Denies dyspnea on exertion GI Denies hematochezia and Denies change in stool character Musc Denies abnormal gait, Denies limited range of motion, Denies muscle cramps, Denies muscle weakness, Denies numbness, Denies radiating pain into limb, Denies stiffness and Denies tingling Neuro Denies abnormal gait, Denies dizziness, Denies numbness and Denies tingling Endo Denies palpitations Physical Exam Vital Signs: Last Vital Signs Pulse 57 02/07/24 15:04 BP 122/70 02/07/24 15:04 BMI result Body Mass Index 34.2 Const General: cooperative, healthy appearing, comfortable and no acute distress Orientation/consciousness: patient oriented x3 Neck Neck: Yes normal visual inspection Resp Effort & Inspection: normal respiratory effort Auscultation: clear to auscultation bilaterally, no rales, no rhonchi and no wheezes Cardio Jugular venous distension: no JVD Rate: regular rate Rhythm: regular rhythm Heart sounds: S1 normal heart sound present, S2 normal heart sound present, no murmurs and no rubs Neuro General: patient oriented x3 Extrem General: Yes normal to inspection and No no pedal edema Psych Appearance: grossly normal Mental Status: mental status grossly normal Speech and movement: Normal speech and movement present Assessment & Plan Assessment & Plan (1) PVC (premature ventricular contraction): Code(s): I49.3 - Ventricular premature depolarization Category: Medical Plan: History of PVCs, previously seen by [facility]. He reports having bradycardia while on metoprolol XL 50 mg daily. He had been on a lower dose metoprolol until recently but says he stopped as he was not feeling as well on the medication. On office visit here he reported occasional brief palpitations. He underwent evaluation with Holter monitor 12/17/2023 showing sinus bradycardia/sinus rhythm, average heart rate 63, heart rate range 42 to 67, frequent PVCs, 35% with short NSVT runs, longest 15 beats. An echocardiogram was done 12/10/2023 showing EF 60%, no valve abnormalities and no regional wall motion abnormalities. We previously discussed the finding of frequent PVCs. He did undergo a cardiac catheterization on 01/20/2024 showing left circumflex mid 40% stenosis, distal RCA 40-50% stenosis. This nonobstructive coronary artery disease is not contributing to his frequent PVCs as he has no ischemia. A cardiac MRI was previously ordered to evaluate for any cardiac muscle abnormalities. This test has not been completed as of yet. Today he tells me that since his cardiac catheterization procedure he has stopped drinking [employer] energy drinks. He had been drinking up to 3 per day. He is currently noticing less heart palpitations. Beta-darcie was suggested on catheterization report however patient declines at this time as he says he is feeling better off of medications. Will plan to call him with MRI results once available. Cardiology office visit in 4 months, sooner if needed. Will check Holter monitor prior to that time. Instructed to abstain from energy drink, caffeine use. Continue physical activity as tolerated. Emergency care if ever needed for concerning symptoms. (2) Bradycardia: Code(s): R00.1 - Bradycardia, unspecified Category: Medical Plan: As above (3) RBBB: Code(s): I45.10 - Unspecified right bundle-branch block Category: Medical Plan: Noted on EKG (4) S/P cardiac cath: Comment: 01/20/2024, left circumflex mid 40% stenosis, distal RCA 40-50% stenosis Code(s): Z98.890 - Other specified postprocedural states Category: Surgical Plan: Right radial catheterization site well healed (5) CAD (coronary artery disease): Code(s): I25.10 - Atherosclerotic heart disease of [place] coronary artery without angina pectoris Category: Medical Plan: New finding of nonobstructive coronary artery disease. Spent time reviewing the diagnosis with him including details using charts in the room. Will have him start on aspirin 81 mg daily. He is already on atorvastatin. Need for each medication reviewed. He declined beta-darcie. Signs and symptoms of angina discussed. (6) Hyperlipidemia: Code(s): E78.5 - Hyperlipidemia, unspecified Category: Medical Plan: [place] LDL goal less than 70. Last labs done 06/28/2023 showed LDL 74. Continue atorvastatin. Recommend recheck of fasting lipid profile. Will forward this to his PCP. Plan Time spent on chart review, documentation, interview and assessment Medications: New aspirin 81 mg PO DAILY Coding Level of Care Code Est Pt Level 4 (12337) Diagnoses PVC (premature ventricular contraction) I49.3 Bradycardia R00.1 RBBB I45.10 S/P cardiac cath Z98.890 CAD (coronary artery disease) I25.10 Hyperlipidemia E78.5 Time Spent (min) 36
== END 2024-02-07 16:06 | disposition home or self-care (01) ==
LOC: HO.HCS 14:39
PROVIDERS: PCP Nurse Practitioner Family; Visit Provider Nurse Practitioner Family
DX: I49.3 Ventricular premature depolarization (principal); R00.1 Bradycardia, unspecified; I45.10 Unspecified right bundle-branch block; Z98.890 Other specified postprocedural states; I25.10 Atherosclerotic heart disease of native coronary artery without angina pectoris; E78.5 Hyperlipidemia, unspecified
CPT/HCPCS: 99214

== ENCOUNTER 2024-02-29 15:17 | Outpatient (REF) | payer BC, SELFPAY ==
[2024-02-29 17:31] LABS: Anion Gap 14 (12-20); Blood Urea Nitrogen 19 mg/dL (9-16); Carbon Dioxide 26 mmol/L (22-29); Chloride 103 mmol/L (96-108); Estimated Glomerular Filt Rate > 60; Glucose Random 78 mg/dL (60-115); Potassium 3.8 mmol/L (3.3-5.1); Sodium 139 mmol/L (135-145)
== END 2024-02-29 15:18 | disposition home or self-care (01) ==
LOC: HO.XRAY 15:17
PROVIDERS: PCP Nurse Practitioner Family; Visit Provider Nurse Practitioner Family
DX: I25.10 Atherosclerotic heart disease of native coronary artery without angina pectoris (principal)
CPT/HCPCS: 36415; 80048

== ENCOUNTER 2024-06-28 14:30 | Outpatient (AMB) | payer BC, SELFPAY ==
--- NOTE | 2024-06-28 14:32 | MHC.OFFVIS ---
Vital Signs 06/28/24 14:33 Height 6 ft 3 in Weight 271 lb 2.697 oz BMI 33.9 BP 130/78 Blood Pressure Location Lt brachial Position Sitting Pulse 64 Pulse Source Monitor Intake Visit Reasons: 4 mth f/up Allergies codeine Allergy (Mild, Verified 02/07/24 15:11) Hives Sulfa (Sulfonamide Antibiotics) Allergy (Mild, Verified 02/07/24 15:11) Hives Medication List - Last Reconciled 06/28/24 by Lev Dubose MD amlodipine 10 mg PO DAILY aspirin 81 mg PO DAILY atorvastatin 40 mg PO BEDTIME 90 days levothyroxine 50 mcg PO DAILY levothyroxine 200 mcg PO DAILY losartan 25 mg PO DAILY 90 days [id number]-[id number] mcg (Centrum Silver Men) 1 tab PO DAILY 90 days HPI Comments Details: Allan returns for follow-up regarding PVCs. Previously has seen [facility]. He states that for the most part he is feeling fine. Sometimes he does feel palpitations but not too bothersome. He does walk more than 10,000 steps on a regular basis in his job and feels well. No clear-cut angina. He is overweight. He has a history of mild sleep apnea but not on CPAP. However, that is sleep study was more than 10 years ago. He has tried beta-blockers but made him very tired and were stopped. Since last seen, he has undergone cardiac workup including cardiac catheterization as well as cardiac MRI. He states that he has cut back on energy drinks and that has led to some improvement. [facility] Medical History Nicotine dependence, cigarettes, uncomplicated RBBB Hx of thyroid irradiation Graves disease Surgical History History of colonoscopy Family History Father No problems noted. Mother No problems noted. Social History Housing: House Alcohol intake: current Comment: social Patient Tobacco Use Status: Current everyday Tobacco user Cigarettes Per Day: 20 Years Smoked: -onset 15yo, 1ppd x 38yrs, 35pyh) e-Cigarette/Vaping Use: Never Used Second Hand Smoke Exposure: Yes service: No Current occupational status: employed Current occupation: [employer] Current occupational exposures/hazards: Yes Cognitive needs: No Hearing needs: No Vision needs: No Review of Systems Const Denies weakness ENT Denies dizziness Card Denies chest pain, Denies chest pain with activity, Denies syncope, Denies rapid heart rate, Denies pedal edema, Denies edema, Denies leg edema, Denies lightheadedness, Denies palpitations, Denies dyspnea, Denies dyspnea on exertion and Denies orthopnea Resp Denies cough, Denies dyspnea and Denies dyspnea on exertion GI Denies hematochezia and Denies change in stool character Musc Denies abnormal gait, Denies muscle cramps, Denies muscle weakness, Denies numbness, Denies radiating pain into limb and Denies tingling Neuro Denies abnormal gait, Denies dizziness, Denies syncope, Denies numbness, Denies tingling and Denies weakness Endo Denies palpitations Physical Exam Vital Signs: Last Vital Signs Pulse 64 06/28/24 14:33 BP 130/78 06/28/24 14:33 BMI result Body Mass Index 33.9 Const General: comfortable and no acute distress Orientation/consciousness: patient oriented x3 HEENT Other: Unremarkable Head: Yes normal to inspection Neck Neck: Yes normal visual inspection Chest Chest palpation & inspection: normal inspection of the chest Resp Auscultation: clear to auscultation bilaterally Cardio Palpation: normal PMI Heart sounds: S1 normal heart sound present, S2 normal heart sound present, no gallops, no murmurs and no rubs GI Palpation (GI): Soft to palpation Back/Spine/Pelvis Other: unremarkable Skin General skin exam: no rashes or lesions noted Neuro General: patient oriented x3 Extrem General: Yes normal to inspection Psych Mental Status: mental status grossly normal Office Procedures EKG Details: EKG with underlying sinus rhythm at 64/Min; incomplete right bundle-branch block pattern; borderline NV prolongation of 204 milliseconds; normal corrected QT; short 3 beat run of NSVT. [id number]-Iqzfuwheojtioobie, Complete Assessment & Plan Assessment & Plan (1) PVC (premature ventricular contraction): Code(s): I49.3 - Ventricular premature depolarization Category: Medical (2) CAD (coronary artery disease): Code(s): I25.10 - Atherosclerotic heart disease of [place] coronary artery without angina pectoris Category: Medical (3) NSVT (nonsustained ventricular tachycardia): Code(s): I47.29 - Other ventricular tachycardia Category: Medical (4) Primary hypertension: Code(s): I10 - Essential (primary) hypertension Category: Medical (5) Hyperlipidemia: Code(s): E78.5 - Hyperlipidemia, unspecified Category: Medical Plan Cardiac studies reviewed. In the echocardiogram, LVEF is 60%. Moderate septal hypertrophy. No significant valvular findings. In the Holter monitor, underlying rhythm is sinus with an average rate of 63/Min. Mostly unifocal PVCs with a burden of about 35%. Evidence of couplets, triplets, bigeminy, trigeminy, multiple runs. Longest about 15 beats. In the cardiac catheterization, circumflex with 40% stenosis. Distal RCA with 40-50% stenosis. Normal left main/LAD. Cardiac MRI with mild LV enlargement and preserved LVEF at 60%. Possible small focus of fibrosis in the mid inferior wall. Upper normal RV size with LVEF of 60%. Overall, obesity, possible untreated sleep apnea, high burden of PVCs/NSVT. We discussed about PVCs in general in great detail. It seems that he has try beta-blockers but could not tolerate. We will hold off on antiarrhythmics for now. We will send him to EP for further evaluation including possibility of PVC ablation and also to decide on indication for ICD. Otherwise, for completion we will also get a cardiac PET to evaluate for sarcoid. Repeat sleep study as the previous study is more than 10 years ago. Continue meds for hypertension/lipids. Weight loss if able. He will contact us with any ongoing concerns. We will see him back after the EP evaluation is completed. All questions answered to his satisfaction. Total time spent including review of all the records, counseling, documentation, coordination of care-48 minutes. Orders: Orders RT home sleep study Today G47.33 - Obstructive sleep apnea (adult) (pediatric), I47.29 - Other ventricular tachycardia Referrals Cardiac Electrophysiology Referral I47.29 - Other ventricular tachycardia Coding Level of Care Code Est Pt Level 5 (00265) Complex EM visit Add On G2211 Diagnoses PVC (premature ventricular contraction) I49.3 CAD (coronary artery disease) I25.10 NSVT (nonsustained ventricular tachycardia) I47.29 Primary hypertension I10 Hyperlipidemia E78.5 CPT Codes EKG - CPT: 17576-Rsmjbzhxlxqsffkfo, Complete ([id number])
[2024-06-28 14:33] VITALS: BP 130/78; PULSE 64; BMI 33.9
== END 2024-06-28 15:08 | disposition home or self-care (01) ==
LOC: HO.HCS 14:31
PROVIDERS: PCP Nurse Practitioner Family; Visit Provider Internal Medicine
DX: I47.29 Other ventricular tachycardia (principal); I49.3 Ventricular premature depolarization; I25.10 Atherosclerotic heart disease of native coronary artery without angina pectoris; I10 Essential (primary) hypertension; E78.5 Hyperlipidemia, unspecified
CPT/HCPCS: 93010; 99215

== ENCOUNTER → 2024-06-28 14:30 | Outpatient (BNVA) | payer BC, SELFPAY | PROVIDERS: PCP Nurse Practitioner Family; Visit Provider Internal Medicine | DX: G47.33 Obstructive sleep apnea (adult) (pediatric) (principal); I49.3 Ventricular premature depolarization; I25.10 Atherosclerotic heart disease of native coronary artery without angina pectoris; I47.29 Other ventricular tachycardia; I10 Essential (primary) hypertension; E78.5 Hyperlipidemia, unspecified; Z99.89 Dependence on other enabling machines and devices | CPT/HCPCS: 93005 ==

== ENCOUNTER 2024-07-26 14:52 | Outpatient (REF) | payer BC, SELFPAY ==
--- NOTE | ~2024-07-26 | CT_ITS ---
CLINICAL HISTORY: F17.210 - Nicotine dependence, cigarettes, uncomplicated CT lung cancer screening (LDCT) Comparison: None Technique: Axial CT images of the chest using low-dose technique. Referring provider counseled the patient on shared decision-making for LDCT screening. Additional counseling was provided on smoking cessation. Effective radiation dose total: DLP 77.6 mGycm, CTDIvol 2.2 mGy. Findings: Lung: Mild emphysema. Multiple small pulmonary nodules: 2 mm subpleural nodule of the right middle lobe series 4, image 93; 3 mm para fissural nodule of the right middle lobe image 93; 6 mm para fissural nodule of the right lower lobe image 78. Coronary artery calcifications: Moderate Limited upper abdomen: Unremarkable Other: None Impression: LungRADS 3 - Probably benign: Recommend low dose screening Chest CT in 6 months. ##L3# Category 1: Normal; continue annual screening Category 2: Benign appearance or behavior, continue annual screening Category 3: Probably benign, [address] recommended Category 4A: Suspicious, [address] recommended; may consider PET/CT Category 4B: Suspicious, Additional diagnostics and/or tissue sampling recommended Category 4X: Suspicious, Additional diagnostics and/or tissue sampling recommended Category 0: Recalls (incomplete screen due to Incomplete coverage, Noise, Respiratory motion, Expiration, Obscured by acute abnormality) This document has been electronically signed by: Joana Dominique MD on 07/27/2024 14:02:16
--- OUTSIDE RECORDS SUMMARY | 2024-07-26 17:44 | XMS_ITS | Clinical Summary ---
Author Organization [facility] Address [address] [facility] [address] [place] [address] Phone Care Team Providers Care Industrial Cleaner Name Role Phone Erick Schaefer NP Primary Care Provider [phone] Allergies Active Allergy Reactions Criticality Noted Date Comments Codeine 04/10/2005 Sulfa Antibiotics Hives 04/10/2005 Medications amLODIPine (NORVASC) 10 MG tablet Take 10 mg by mouth 1 (one) time each day Active atorvastatin (LIPITOR) 40 MG tablet Take 40 mg by mouth 1 (one) time each day Active metoprolol tartrate 25 MG tablet Take 25 mg by mouth in the morning and 25 mg in the evening. Active Multiple Vitamin (multivitamin) capsule Take 1 capsule by mouth 1 (one) time each day Active levothyroxine (SYNTHROID, LEVOTHROID) 25 MCG tablet TAKE 1 TABLET BY MOUTH DAILY. TAKE WITH 200 MCG DOSE FOR A TOTAL OF 225 MCG DAILY 01/15/2023 Active Active Problems Problem Noted Date Diagnosed Date Benign hypertension 02/23/2008 01/18/2023 Resolved Problems Problem Noted Date Diagnosed Date Resolved Date Dyspnea on exertion 01/30/2021 01/18/2023 01/19/20 23 Multiple premature ventricular complexes 08/08/2017 01/18/2023 01/18/2023 Obstructive sleep apnea syndrome 08/26/2015 01/19/20 23 01/18/2023 Overview (01/18/2023): Mild, AHI 8.5 Following with Gabriella Wade Using CPAP Tobacco user 04/23/2015 01/18/2023 01/18/2023 Hypothyroidism 07/10/2014 01/18/2023 01/18/2023 Overview (01/18/2023): PEARSON 02/05/12 22.8 millicuries ([facility]) S/p PEARSON 02/2012 22.8 millicuries for hyperthyroid Hyperlipidemia 03/12/2008 01/18/2023 01/18/2023 Obesity 02/23/2008 01/18/2023 01/18/2023 Immunizations Immunization Administration Dates Next Due Pfizer SARS-COV-2 06/11/2020,05/20/2020 Td 05/25/2019 Tdap 07/27/2007 Social History Tobacco Use Types Packs/Day Years Used Date Smoking Tobacco: Every Day Cigarettes Passive Smoke Exposure: Never Smokeless Tobacco: Never Tobacco Cessation:Ready to Q uit: Not Asked; Counseling Given: Not Answered Alcohol Use Standard Drinks/Week Comments Yes 0 (1 standard drink = 0.6 oz pur e alcohol) Sex and Gender Information Value Date Recorded Sex Assigned at Not on file Legal Sex Male 2:30 PM EDT Gender Identity Not on file Sexual Orientation Not on file Last Filed Vital Signs Vital Sign Reading Time Taken Comments Blood Pressure 124/56 04/06/2023 4:48 PM EST Pulse 60 04/06/2023 4:48 PM EST Temperature - - Respiratory Rate - - Oxygen Saturation 98% 01/18/2023 11:28 AM EDT Inhaled Oxygen Concentration - - Weight 127 kg (279 lb) 04/06/2023 4:48 PM EST Height - - Body Mass Index - - Plan of Treatment Health Maintenance Due Date Last Done Comments Hepatitis B Vaccine (1 of 3 - 19+ 3-dose series) 05/12 Pneumococcal Vaccine: 50+ Years (1 of 2 - PCV) 991 Colorectal Cancer Screening: Annual FOBT 2020 Colorectal Cancer Screening: Colonoscopy 2020 Colorectal Cancer Screening: Sigmoidoscopy 2020 Influenza Vaccine (Season Ended) 2024 [place] [id number] [facility] Care Teams Industrial Cleaner Relationship Specialty Start Date End Date Erick Schaefer NP [address] [place], [place] PCP - General Nurse Practitioner 10/14/22
--- OUTSIDE RECORDS SUMMARY | 2024-07-26 17:45 | XMS_ITS | Data Portability ---
Author Organization [facility], [address] Address [address] [place] [address] Care Team Providers Care Customer Assistance Representative Name Role Phone [facility] Primary Care Provider Assessment No assessment recorded. Plan of Treatment Reminders Order Date Submit Date Provider Last Modified By Organization Details Last Modified Time Details Appointments None recorded. Lab rapid SARS CoV 2 Ag, QL IA, respiratory specimen 2022 023 [place] [id number] [facility] [address] [place], [address], 3 10:07:31 rapid flu (A+B) 2022 023 [place] [address] [facility] [place], [address], 10:07:31 Referral None recorded. Procedures None recorded. Surgeries None recorded. Imaging None recorded. Medication Orders albuterol sulfate HFA 90 mcg/actuati on aerosol inhaler 2022 023 [id number], [address], [place], [phone], 3 10:07:38 Zithromax Z-Koko 250 mg tablet 2022 023 [id number], [address], [place], [phone], 3 10:07:43 prednisone 20 mg tablet 2022 023 [id number], [address], [place], [phone], 10:07:39 Patient TargetsNo targets recorded. Patient Instructions Encounter Date Encounter Id Patient Instructions Last Modified By Organization Details Last Modified Time 06/04/2022 [id number] cough: care instructions [email or web address] Not available 06/04/2022 10:07:31 Reason for Referral None Reported. Results Created Date Observation Date Name Description Value Unit Range Abnormal Flag Note LastModifiedBy Organization Detail LastModifiedTime 06/05/1906/04/2022 rapid flu (A+B) Unknown Analyte Normal = Negati ve Not Available [address] [place], [address], 06/04/2022 09:32:41 06/05/1906/04/2022 rapid flu (A+B) Unknown Analyte negati ve Not Available [address] [place], [address], 06/04/2022 09:32:41 06/05/19 23 06/04/2022 rapid flu (A+B) Unknown Analyte Normal = Negati ve Not Available [address] [place], [address], 06/04/2022 09:32:41 06/05/19 23 06/04/2022 rapid flu (A+B) Unknown Analyte negati ve Not Available [address] [place], [address], 06/04/2022 09:32:41 06/05/19 23 06/04/2022 rapid SARS CoV 2 Ag, QL IA, respi rator y speci men Unknown Analyte Normal =Negat ken Not Available [address] [place], [address], 06/04/2022 09:18:12 06/05/19 23 06/04/2022 rapid SARS CoV 2 Ag, QL IA, respi rator y speci men Unknown Analyte negati ve Not Available [address] [place], [address], 06/04/2022 09:18:12 Result Notes None recorded. Problems Name Problem SNOMED Code Status Onset Date Resolution Date Notes Provider Name and Address Organization Details Recorded Time Disorder of thyroid gland 80671628 Active JULITO JAIME-RIVE RA null, PA - [facility] 3 09:29:34 Cardiac arrhythmia 081071626 Active JULITO JAIME-RIVE RA null, PA - [facility] 3 09:29:51 Hypercholester olemia 04786236 Active JULITO JAIME-RIVE RA null, PA - [facility] 3 09:30:05 Hypertensive disorder 65391956 Active JULITO JAIME-RIVE RA null, PA - [facility] 3 09:30:24 Problem Notes None recorded. Procedures Surgical History Date Name Laterality Status Provider Name and Address Organization Details Recorded Time extraction of wisdom tooth completed JULITO JAIME-JIMENEZ PA - [facility] 06/04/2022 09:32:06 Imaging Results None recorded. Procedure Notes None recorded. Medical Equipment None Reported. Allergies Allergen ID Allergen Name Allergen Category Reaction Reaction Severity Criticality Documentation Date Start Date Code Code System Note Provider Name and Address Organization Details Recorded Time 675831 Substance with sulfonami de structure and antibacte rial mechanism of action (substanc e) medicatio n hives Not available Not available 06/04/2022 19583 8003 SNOMED UJLITO JAIME-RIVE RA null, PA - [facility] 3 09:24:45 515910 codeine medicatio n other Not available Not available 06/04/2022 2670 RxNorm JULITO JAIME-RIVE RA null, PA - [facility] 3 09:25:45 Medications Name Sig Start Date Stop Date Status Note LastModified by Organization Details LastModified Time atorvastati n 40 mg tablet TAKE 1 TABLET BY MOUTH AT BEDTIME active Not Available Not Available No t Available azithromyci n 250 mg tablet TAKE 2 TABLETS (500 MG) BY ORAL ROUTE ONCE DAILY FOR 1 DAY THEN 1 TABLET (250 MG) BY ORAL ROUTE ONCE DAILY FOR 4 DAYS active Not Available Not Available No t Available Synthroid 200 mcg tablet TAKE 1 TABLET BY MOUTH DAILY active Not Available Not Available No t Available prednisone 20 mg tablet TAKE 2 TABLETS BY MOUTH EVERY DAY FOR 5 DAYS active Not Available Not Available No t Available levothyroxi ne 25 mcg tablet 06/04 completed Not Available Not Available Not Available amlodipine 10 mg tablet TAKE 1 TABLET BY MOUTH DAILY active Not Available Not Available No t Available bisacodyl 5 mg tablet,salvador yed release TAKE 2 TABLETS BY MOUTH RIGHT BEFORE BEGINNING BOWEL PREP. FOLLOW INSTRUCTI ONS GIVEN BY OFFICE FOR TIMING 06/04 completed Not Available Not Available Not Available metoprolol succinate ER 25 mg tablet,exte nded release 24 hr active Not Available Not Available Not Available albuterol sulfate HFA 90 mcg/actuati on aerosol inhaler INHALE 2 PUFFS BY MOUTH EVERY 4 HOURS FOR 10 DAYS active Not Available Not Available No t Available fluticasone propionate 50 mcg/actuati on nasal spray,suspe nsion active Not Available Not Available Not Available levothyroxi ne 112 mcg tablet TAKE 1 TABLET BY MOUTH DAILY 06/04 completed Not Available Not Available Not Available Centrum Silver active Not Available Not Available Not Available peg 3350-electr olytes 236 gram-22.74 gram-6.74 gram-5.86 gram solution TAKE 4000 ML BY MOUTH 1 TIME FOR 1 DOSE 06/04 completed Not Available Not Available Not Available Vitals Date Recorded Body height Body mass index (BMI) Body weight Oxygen saturation Oxygen saturation in Arterial blood by Pulse oximetry Pain severity - 0-10 verbal numeric rating [Score] - Reported Heart rate Respiratory rate Body temperature Systolic blood pressure Diastolic blood pressure Provider Name and Address Organization Details Last Updated DateTime 3 190.5 cm 31.9 kg/m2 266660. 05 g 98 % 98 % 0 50 /min 18 /min 98.6 [degF] 120 mm[Hg] 90 mm[Hg] JULITO LUNA RA PA - [facility] 3 09:23:43 Social History Question Answer Notes LastModified by Organizat ion Details LastModified Time Tobacco Smoking Status Current Every Day Smoker JULITO roberts, PA - [facility] 06/04/2022 09:31:58 What Is Your Level Of Alcohol Consumption? Occasional Information not available 06/04/2022 How Much Tobacco Do You Smoke? 1 PPD Information not available 06/04/2022 Do You Use Any Illicit Or Recreational Drugs? No Information not available 06/04/2022 Have You Recently Traveled Abroad? No Information not available 06/04/2022 Do You Or Have You Ever Used Any Other Forms Of Tobacco Or Nicotine? No Information not available 06/04/2022 Sex: Unknown Functional Status None recorded. Mental Status None recorded. Family History Relationship Description Onset Age of this Age Resolved Age Notes LastModified by Organization Details LastModified Time Mother Chronic obstructive pulmonary disease Not available 05/2022 09:31:02 Mother Myocardial infarction Not available 09:31:34 Father Malignant neoplastic disease Not available 05/2022 09:31:41 Medical History No medical history recorded. Immunizations Vaccine Type Date Status Note Provider Nam e and Address Organization Details Recorded Time Influenza, MDCK, quadrivalent, PF 3 completed JULITO JAIME-JIMENEZ null, PA - [facility] 06/04/2022 09:24:23 COVID-19, mRNA, LNP-S, PF, 30 mcg/0.3 mL dose 1 completed JULITO JAIME-JIMENEZ null, PA - [facility] 06/04/2022 09:24:23 COVID-19, mRNA, LNP-S, PF, 30 mcg/0.3 mL dose 1 completed JULITO JAIME-JIMENEZ null, PA - [facility] 06/04/2022 09:24:23 Tdap 3 completed JULITO JAIME-JIMENEZ null, PA - [facility] 06/04/2022 09:24:23 Tdap 8 completed JULITO JAIME-JIMENEZ null, PA - [facility] 06/04/2022 09:24:23 Td (adult), 2 Lf tetanus toxoid, preservative free, adsorbed 0 completed JULITO JAIME-JIMENEZ null, PA - [facility] 06/04/2022 09:24:23 Influenza, split virus, quadrivalent, PF 0 completed JULITO JAIME-JIMENEZ null, PA - [facility] 06/04/2022 09:24:23 Influenza, split virus, quadrivalent, PF 1 completed JULITO JAIME-JIMENEZ null, PA - [facility] 06/04/2022 09:24:23 Past Encounters Encounter ID Performer Location Encounter Start Date Encounter Closed Date Diagnosis/Indication Diagnosis SNOMED-CT Code Diagnosis ICD10 Code Diagnosis Note [id number] [address] [facility] [place] [address] 07/18/2017 12:32:38 07/18/2017 13:54:56 [id number] [place] [address] [facility] [place] [address] 06/04/2022 08:52:15 06/04/2022 10:10:24 Acute bronchitis 66606840 J20.8 Heavy smoker with no diagnosis COPD.Wheez ing and Rhonchi on exam but no Xray available in office todaysmoki ng cessation discussedP lease follow up with PCP or Urgent Care in 3-5 days if no improvemen t or if any new symptoms occur that are concerning .Call 911 or go to nearest ER if you develop any shortness of breath, chest pain, severe headache, dizziness, or other concerning symptoms Health Concerns Section Related Observation LastModified by Organization Detai ls LastModified Time None Recorded Concern Status LastModified by Organization Details LastModified Time None Recorded Advance Directives Directive None Recorded Payers Encounter Date Sequence Insurance Name Policy Number Policy Smith Covered Member ID Smiht Member ID Guarantor Name 07/18/2017 1 [place]: [employer] ([place] [id number] Allan Mcintosh [id number] Allan Mcintosh 06/04/2022 1 [facility] [id number] Allan Mcintosh [id number] Allan Mcintosh Notes Date Note Type Note Provider Name and Address Organization Details Recorded Time 06/04/2022 text/html CoughReported bypatient.Quality:i ntermittent Severity:moderate Duration:21 days Timing:gradual Context:smoker Associated Symptoms:no chills; no chest pain; no nausea; no vomiting; no edema;fever;wheezin g;can't get a deep breath Darlene Wolfe MD [address] [place], [place] [address], [address], PA - [facility] 06/04/2022 10:10:01
== END 2024-07-26 14:53 | disposition home or self-care (01) ==
LOC: HO.CT 14:52
PROVIDERS: PCP Nurse Practitioner Family; Visit Provider Physician Assistant Medical
DX: Z12.2 Encounter for screening for malignant neoplasm of respiratory organs (principal); F17.210 Nicotine dependence, cigarettes, uncomplicated
CPT/HCPCS: 71271

== ENCOUNTER → 2024-07-26 14:54 | Outpatient (BNV) | payer BC, SELFPAY | PROVIDERS: PCP Nurse Practitioner Family; Visit Provider Nuclear Medicine | DX: F17.210 Nicotine dependence, cigarettes, uncomplicated (principal) | CPT/HCPCS: 71271 ==

== ENCOUNTER → 2024-11-02 15:25 | Outpatient (REF) | payer BC, SELFPAY ==
--- OUTSIDE RECORDS SUMMARY | 2024-11-02 15:29 | XMS_ITS | Clinical Summary ---
Author Organization [facility] Address [address] [facility] [address] [place] [address] Phone Care Team Providers Care Barrel Cooper Name Role Phone Erick Schaefer NP Primary Care Provider [phone] Allergies Active Allergy Reactions Criticality Noted Date [...] 01/18/2023 Overview (01/18/2023): PEARSON 02/05/12 22.8 millicuries ([facility]) S/p PEARSON 02/2012 22.8 millicuries [...] Colorectal Cancer Screening: Sigmoidoscopy 2020 Influenza Vaccine (#1) [address] [place] [id number] [facility] Care Teams Barrel Cooper Relationship Specialty Start Date End Date Erick Schaefer NP 1960 [place], [place] PCP - General Nurse Practitioner 10/14/22
--- OUTSIDE RECORDS SUMMARY | 2024-11-02 15:29 | XMS_ITS ---
Author Name [facility] Organization Unknown Care Team Organization Name Specialty Phone Email Start Date End Lars guzman [facility] 07/28/2023 [facility] 07/28/2023
== END ==
LOC: HO.SL 15:25
PROVIDERS: PCP Nurse Practitioner Family; Visit Provider Internal Medicine
DX: G47.33 Obstructive sleep apnea (adult) (pediatric) (principal); I47.29 Other ventricular tachycardia
CPT/HCPCS: 95806

== ENCOUNTER → 2024-11-02 15:37 | Outpatient (BNV) | payer BC, SELFPAY | PROVIDERS: PCP Nurse Practitioner Family; Visit Provider Internal Medicine | DX: G47.33 Obstructive sleep apnea (adult) (pediatric) (principal) | CPT/HCPCS: 95806 ==

== ENCOUNTER 2024-11-27 06:54 | Outpatient (REF) | payer BC, SELFPAY ==
--- OUTSIDE RECORDS SUMMARY | 2024-11-27 06:56 | XMS_ITS | Clinical Summary ---
Author Organization [facility] Address [address] [facility] [address] [place] [address] Phone Care Team Providers Care Technical Writer And Editor Name Role Phone Erick Schaefer NP Primary Care Provider [phone] Allergies Active Allergy Reactions Criticality Noted Date [...] 01/18/2023 Overview (01/18/2023): PEARSON 02/05/12 22.8 millicuries ([facility]) S/p PEARSON 02/2012 22.8 millicuries for [...] Vaccine (#1) [address] [place] [id number] [facility] Care Teams Technical Writer And Editor Relationship Specialty Start Date End Date Erick Schaefer NP 1960 [place], [place] PCP - General Nurse Practitioner 10/14/22
[2024-11-27 10:24] LABS: MANUAL DIFF FLAG NO
[2024-11-27 10:26] LABS: Appearance Urine Clear; Glucose Urine UA Negative (Negative); PH 8.0 (5.0-9.0); Specific Gravity - Urine 1.015 (1.005-1.025)
[2024-11-27 10:34] LABS: Hematocrit 44.9 % (42.0-52.0); Hemoglobin 15.0 g/dl (14.0-18.0); Imm Gran Abs Auto 0.02 X10*3/uL (0.00-0.03); Imm Gran Pct Auto 0.4 % (0.0-0.4); Lymphocytes Absolute Auto 1.4 X10*3/uL (1.2-4.9); Mean Corpuscular HGB Conc 33.4 g/dl (31.0-36.0); Mean Corpuscular Hemoglobin 31.6 pg (27.0-33.0); Mean Corpuscular Volume 94.5 fL (80.0-98.0); NRBC Abs Auto 0.000 X10*3/uL (0.0-0.012); NRBC Pct Auto 0.0 /100WBC (0.0-0.2); Platelet Count 178 X10*3/uL (160-400); Red Blood Count 4.75 X10*6/uL (4.60-5.80); White Blood Count 5.1 X10*3/uL (4.8-10.8)
[2024-11-27 10:56] LABS: Alanine Aminotransferase 61 U/L (0-40); Albumin Level 4.1 g/dL (3.5-5.0); Alkaline Phosphatase 69 U/L (39-117); Anion Gap 11 (12-20); Aspartate Amino Transferase 34 U/L (5-37); Blood Urea Nitrogen 13 mg/dL (9-16); Calcium 8.7 mg/dL (8.4-10.2); Carbon Dioxide 27 mmol/L (22-29); Chloride 107 mmol/L (96-108); Cholesterol 204 mg/dL (<200); Estimated Glomerular Filt Rate > 60; HDL Cholesterol 43 mg/dL (>40); Potassium 3.8 mmol/L (3.3-5.1); Sodium 141 mmol/L (135-145); Total Protein 6.2 g/dL (6.5-8.0); Triglycerides 109 mg/dL (<150)
== END 2024-11-27 06:55 | disposition home or self-care (01) ==
LOC: HO.HMGCLDS 06:54
PROVIDERS: PCP Nurse Practitioner Family; Visit Provider Nurse Practitioner Family
DX: Z00.00 Encounter for general adult medical examination without abnormal findings (principal); Z12.5 Encounter for screening for malignant neoplasm of prostate; Z13.6 Encounter for screening for cardiovascular disorders
CPT/HCPCS: 36415; 80053; 80061; 81003; 84153; 84443; 85025

== ENCOUNTER 2025-01-02 13:10 | Outpatient (AMB) | payer BC, SELFPAY ==
[2025-01-02 13:21] VITALS: BP 122/72; PULSE 42; O2SAT 97; BMI 33.3
--- NOTE | 2025-01-02 13:21 | A.OFFVIS_ITS ---
Vital Signs 01/02/25 13:21 Height 6 ft 3 in Weight 266 lb 12.149 oz BMI 33.3 BP 122/72 Blood Pressure Location Lt brachial Position Sitting Pulse 42 L Pulse Source Pulse Oximeter Pulse Oximetry (%) 97 Oxygen Delivery Method Room Air Intake Visit Reasons: Sleep apnea Intake Note: pt is here as a new patient for follow up of sleep study. no symptoms Locomotive Repairer Diesel Required: No Family Service Counselor: Family Service Counselor offered & declined Allergies codeine Allergy (Mild, Verified 01/02/25 13:27) Hives Sulfa (Sulfonamide Antibiotics) Allergy (Mild, Verified 01/02/25 13:27) [facility]ives [facility] Medical History Nicotine dependence, cigarettes, uncomplicated RBBB Hx of thyroid irradiation Graves disease Surgical History History of colonoscopy Family History Father No problems noted. Mother No problems noted. 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
--- NOTE | 2025-01-02 13:39 | A.OFFVIS_ITS ---
Vital Signs 01/02/25 13:21 Height 6 ft 3 in Weight 266 lb 12.149 oz BMI 33.3 BP 122/72 Blood Pressure Location Lt brachial Position Sitting Pulse 42 L Pulse Source Pulse Oximeter Pulse Oximetry (%) 97 Oxygen Delivery Method Room Air Intake Visit Reasons: Sleep apnea Allergies codeine Allergy (Mild, Verified 01/02/25 14:29) Hives Sulfa (Sulfonamide Antibiotics) Allergy (Mild, Verified 01/02/25 14:29) Hives Medication List - Last Reconciled 01/02/25 by Nikole Simon MD amlodipine 10 mg PO DAILY aspirin 81 mg PO DAILY atorvastatin 40 mg PO BEDTIME 90 days levothyroxine 50 mcg PO DAILY levothyroxine 200 mcg PO DAILY losartan 25 mg PO DAILY 90 days [id number] mcg (Centrum Silver Men) 1 tab PO DAILY 90 days Do you need a note to return to daycare/school/sports/work: No HPI HPI Sleep apnea: Details: This gentleman is 54 years old, moderately obese, has been sent here because of abnormal home-based sleep study. He had sleep study because of his ongoing arrhythmias, mostly in the form of frequent premature ventricular contractions. He does have intermittent premature beats. Has had cardiac catheterization, without much abnormality. He is being treated for mild hypertension, hypothyroidism and hyperlipidemia. He smokes about 1 pack of cigarettes a day. He is annual lung screening program. He claims that he sleeps OK , but wakes up a few times sleep, to go to the bathroom and then he can go back to sleep okay. Denies any daytime sleepiness . He is moderately obese with BMI of 33. Had home-based sleep study on 11/02/2024, which was positive for sleep apnea, mild to moderate and predominantly in supine position. [facility], [facility] Medical History EDGAR (obstructive sleep apnea) Nicotine dependence, cigarettes, uncomplicated RBBB Hx of thyroid irradiation Graves disease Surgical History History of colonoscopy Family History Father No problems noted. Mother No problems noted. Social History Housing: House Alcohol intake: current Comment: social Patient Tobacco Use Status: Current everyday Tobacco user Cigarettes Per Day: 20 Years Smoked: -onset 15yo, 1ppd x 38yrs, 35pyh) e-Cigarette/Vaping Use: Never Used Second Hand Smoke Exposure: Yes service: No Current occupational status: employed Current occupation: [employer] Current occupational exposures/hazards: Yes Cognitive needs: No Hearing needs: No Vision needs: No Review of Systems Const All systems reviewed & are unremarkable except as noted in HPI and below Eyes Reports no additional complaints ENT Reports no additional complaints Card Denies chest pain, Denies syncope, Reports irregular heart rhythm and Denies leg edema Resp Reports as per HPI GI Reports no additional complaints Reports no additional complaints Musc Reports no additional complaints Skin/Breast Reports system reviewed and no additional complaints, except as documented Neuro Reports no additional complaints and Denies syncope Psych Reports no additional complaints Endo Reports no additional complaints Rogelio/Lymph Reports no additional complaints Aller/Immun Reports no additional complaints Physical Exam Vital Signs: Last Vital Signs Pulse 42 L 01/02/25 13:21 BP 122/72 01/02/25 13:21 Pulse Ox 97 01/02/25 13:21 Oxygen Delivery Method Room Air 01/02/25 13:21 BMI result Body Mass Index 33.3 Const General: healthy appearing (Except for being overweight), comfortable, no acute distress, alert and awake Orientation/consciousness: patient oriented x3 HEENT Head: Yes normal to inspection General nose exam: No nasal polyps present and No nasal discharge present Face and sinus: Yes sinuses nontender Mouth: oropharynx normal Teeth and gingiva: other (Oropharynx slightly crowded, Mallampati scale 3) Throat: Yes posterior oropharynx normal Eyes General: appearance normal, both eyes and all related structures Neck Neck: Yes normal visual inspection, Yes no lymphadenopathy, Yes trachea midline, Yes no JVD and Yes other (Neck size 17-1/2 inch) Thyroid: Thyroid normal Chest Chest palpation & inspection: normal inspection of the chest and normal palpation of entire chest wall Resp Effort & Inspection: normal respiratory effort Auscultation: clear to auscultation bilaterally Cardio Palpation: normal PMI Rate: regular rate Rhythm: regular rhythm Heart sounds: no gallops and no murmurs Peripheral pulses: Peripheral pulses 2+ throughout GI Palpation (GI): Soft to palpation, nontender, No hepatosplenomegaly present and no masses Auscultation: normal bowel sounds Back/Spine/Pelvis Thoracic/Lumbar Spine: thoracic and lumbar spine normal to inspection Skin General skin exam: no rashes or lesions noted Neuro General: patient oriented x3 and no focal motor deficits Cranial nerves: Yes CN's II-XII intact bilaterally Extrem General: Yes normal to inspection, Yes no clubbing, cyanosis or edema and Yes no calf tenderness Psych Appearance: grossly normal and well kempt Speech and movement: Normal speech and movement present Results Reviewed Results Reviewed: Home-based sleep study on 11/02/2024 Total sleep time AHI 10.1 supine position AHI 25 Snoring for 25% of the sleep time nocturnal hypoxemia with lowest O2 sat 74 and O2 sat below 88% for 25 minutes . PULMONARY FUNCTION TEST : HE WAS ABLE TO GET PFT DONE TODAY. THE TEST IS ESSENTIALLY NORMAL, DOES NOT SHOW ANY SIGNIFICANT OBSTRUCTIVE OR RESTRICTIVE LUNG DISEASE, AND NO SIGNIFICANT RESPONSE TO BRONCHODILATOR THERAPY. Assessment & Plan Assessment & Plan (1) Nicotine dependence, cigarettes, uncomplicated: Comment: (smoker -onset 15yo, 1ppd x 38yrs, 35pyh) Code(s): F17.210 - Nicotine dependence, cigarettes, uncomplicated Category: Medical Plan: I HAD A GOOD CONVERSATION ABOUT SMOKING. HE STANDS AT RISK OF COPD, LUNG CANCER, AND CORONARY ARTERY DISEASE. I URGED HIM TO QUIT SMOKING, HE CAN START CUTTING DOWN THE NUMBER OF CIGARETTES, QUIT AT ONCE, WHICH WILL BE DIFFICULT FOR HIM. ALSO TOLD HIM THAT HE SHOULD PARTICIPATE IN ANNUAL LUNG SCREENING PROGRAM. . HE IS AGREEABLE (2) EDGAR (obstructive sleep apnea): Comment: HE DOES HAVE OBSTRUCTIVE SLEEP APNEA, PREDOMINANTLY IN SUPINE POSITION. SEVERITY IS MILD TO MODERATE. OF CONCERN IS THE FACT THAT HE HAS NOCTURNAL HYPOXEMIA. Code(s): G47.33 - Obstructive sleep apnea (adult) (pediatric) Category: Medical Plan: USUALLY WITH MILD TO MODERATE EDGAR WHICH IS PREDOMINANTLY IN SUPINE POSITION, THE TREATMENT WOULD BE POSITION THERAPY AND WEIGHT REDUCTION. BUT IN HIS CASE HAVING HAD HISTORY OF CARDIAC DISEASE, AND ALSO SOME ASSOCIATED NOCTURNAL HYPOXEMIA. I THINK HE WILL BE BETTER OF START DOING ON THE CPAP THERAPY. HER A GOOD DISCUSSION I FIND I EXPLAINED TO HIM PROS AND CONS. HE DOES AGREE TO TRY USING THE CPAP . HAVE ORDERED CPAP WITH AUTO PAP MODE PRESSURE SETTING 6-20 CM. USING FULLFACE OR NASAL MASK WHICH EVER WORKS BEST FOR HIM., WILL BE MONITORED CLOSELY FOR COMPLIANCE (3) S/P cardiac cath: Comment: 01/20/2024, left circumflex mid 40% stenosis, distal RCA 40-50% stenosis . HE ALSO HAS FREQUENT PREMATURE VENTRICULAR CONTRACTION . Code(s): Z98.890 - Other specified postprocedural states Category: Surgical Plan: IN VIEW OF THIS FINDING IS BETTER FOR HIM TO USE CPAP. (4) Frequent PVCs: Comment: THE PVCS MAY BE, NONSPECIFIC, HE DOES NOT HAVE ANY SUSTAINED BOUTS OF PVCS OR TACHYCARDIA. Code(s): I49.3 - Ventricular premature depolarization Category: Medical Plan: CONTINUE CLOSE FOLLOW-UP BY THE CARDIOLOGY SERVICE Orders: Orders PFT pulmonary function test Today F17.210 - Nicotine dependence, cigarettes, uncomplicated, G47.33 - Obstructive sleep apnea (adult) (pediatric), I49.3 - Ventricular premature depolarization Coding Level of Care Code New Pt Level 4 (90488) Diagnoses Nicotine dependence, cigarettes, uncomplicated F17.210 EDGAR (obstructive sleep apnea) G47.33 S/P cardiac cath Z98.890 Frequent PVCs I49.3
--- OUTSIDE RECORDS SUMMARY | 2025-01-02 14:25 | XMS_ITS | Clinical Summary ---
Author Organization [facility] Address [address] [facility] [address] [place] [address] Phone Care Team Providers Care Doctor Of Naprapathic Medicine Name Role Phone Erick Schaefer NP Primary Care Provider [phone] Allergies Active Allergy Reactions Criticality Noted Date [...] 01/18/2023 Overview (01/18/2023): PEARSON 02/05/12 22.8 millicuries ([facility]) S/p PEARSON 02/2012 22.8 millicuries [...] Vaccine (#1) 2024 [place] [address] [facility] Care Teams Doctor Of Naprapathic Medicine Relationship Specialty Start Date End Date Erick Schaefer NP [address] [place], [place] PCP - General Nurse Practitioner 10/14/22
== END 2025-01-02 14:03 | disposition home or self-care (01) ==
LOC: HO.HPS 13:11
PROVIDERS: PCP Nurse Practitioner Family; Visit Provider Internal Medicine
DX: F17.210 Nicotine dependence, cigarettes, uncomplicated (principal); G47.33 Obstructive sleep apnea (adult) (pediatric); Z98.890 Other specified postprocedural states; I49.3 Ventricular premature depolarization
CPT/HCPCS: 94060; 94727; 94729; 99204

== ENCOUNTER 2025-01-02 14:04 | Outpatient (REF) | payer BC, SELFPAY ==
--- NOTE | 2025-01-02 14:47 | PFT_ITS ---
Indication EDGAR Spirometry FEV1 to FVC 72%; FEV1 4.02 L; FVC 5.55 L. No significant response to bronchodilators noted. Lung Volumes Total lung capacity 97% predicted Diffusion Capacity DLCO 96% predicted Comparisons None Interpretation No definitive obstructive ventilatory defect. Although there is a slight concavity to the expiratory limb suggesting an obstructive physiology. No significant response to bronchodilators. No evidence of any restriction. Diffusing capacity is within normal limits. If asthma is in the differential methacholine challenge may be helpful in assessing for hyperreactive airways. Clinical correlation warranted. MTDD
[2025-01-02 14:49] VITALS: PULSE 40; O2SAT 98
== END 2025-01-02 14:05 | disposition home or self-care (01) ==
LOC: HO.RESP 14:04
PROVIDERS: PCP Nurse Practitioner Family; Visit Provider Internal Medicine
DX: I49.3 Ventricular premature depolarization (principal); G47.33 Obstructive sleep apnea (adult) (pediatric); F17.210 Nicotine dependence, cigarettes, uncomplicated
CPT/HCPCS: 94010; 94640; 94727; 94729

== ENCOUNTER 2025-02-27 15:24 | Outpatient (AMB) | payer BC, SELFPAY ==
--- NOTE | 2025-02-27 15:29 | A.OFFVIS_ITS ---
Intake Visit Reasons: Urinary Frequency Intake Note: New Patient is present for urinary frequency Urology Rx:none PVR:9 mls Blood Thinners:aspirin Imaging completed: none Senior Audit Manager Required: No Accompanied by: Self / Same As Patient Allergies codeine Allergy (Mild, Verified 02/27/25 15:33) Hives Sulfa (Sulfonamide Antibiotics) Allergy (Mild, Verified 02/27/25 15:33) Hives HPI Comments Details: Rafy is a very pleasant male. He is a patient of Dr. Silvio gordon. He is seen for the following urologic condition - urinary urgency and frequency Urinary urgency and frequency Background mild sleep apnea untreated Waking 2-3 times per night Effective voiding parameters with stream and bladder emptying Did discuss trial daily Cialis for bladder instability Three-month follow-up Check baseline Testosterone and PSA PFSH Medical History EDGAR (obstructive sleep apnea) Nicotine dependence, cigarettes, uncomplicated RBBB Hx of thyroid irradiation Graves disease Surgical History History of colonoscopy Family History Father No problems noted. Mother No problems noted. Social History Housing: House Alcohol intake: current Comment: social Patient Tobacco Use Status: Current everyday Tobacco user Cigarettes Per Day: 20 Years Smoked: -onset 15yo, 1ppd x 38yrs, 35pyh) e-Cigarette/Vaping Use: Never Used Second Hand Smoke Exposure: Yes service: No Current occupational status: employed Current occupation: [employer] Current occupational exposures/hazards: Yes Cognitive needs: No Hearing needs: No Vision needs: No Review of Systems Const Denies chills and Denies fever(s) Card Reports no additional complaints and Denies syncope Resp Denies cough GI Denies abdominal pain and Denies heartburn Reports as per HPI and Denies change in libido Neuro Denies syncope Psych Denies change in libido Endo Denies change in libido Physical Exam Const General: cooperative, healthy appearing, comfortable and no acute distress Orientation/consciousness: patient oriented x3 HEENT Face and sinus: Yes normal facial exam Mouth: moist mucous membranes Neck Neck: Yes normal visual inspection, Yes full ROM and Yes trachea midline Chest Chest palpation & inspection: normal inspection of the chest Resp Effort & Inspection: normal respiratory effort, able to speak in complete sentences and no respiratory distress GI Inspection: Yes normal to inspection Back/Spine/Pelvis Cervical Spine: normal cervical lordosis Thoracic/Lumbar Spine: thoracic and lumbar spine normal to inspection Skin General skin exam: no rashes or lesions noted Neuro General: patient oriented x3, gait normal, tone normal and moves all extremities Extrem General: Yes normal to inspection and Yes capillary refill normal Office Procedures Post Void Residual Post Residual Void Post Void Residual (PVR): 9 [id number] Void Residual by ultrasound Results AMB Urinalysis, Automated UA Leukoctes 0 Gay/uL Last Edit by Deya Johnson [facility] on 02/27/25 15:42 UA Nitrite Negative Last Edit by Deya Johnson [facility] on 02/27/25 15:42 UA Urobilinogen 0.2 mg/dL Last Edit by Deya Johnson [facility] on 02/27/25 15:42 UA Protein 15 mg/dL Last Edit by Deya Johnson [facility] on 02/27/25 15:42 UA pH 5.0 Last Edit by Deya Johnson [facility] on 02/27/25 15:42 UA Blood 0 Santino/uL Last Edit by Deya Johnson [facility] on 02/27/25 15:42 UA Specific [place] 1.020 Last Edit by Deya Johnson [facility] on 02/27/25 15:4 2 UA Ketone Negative Last Edit by Deya Johnson [facility] on 02/27/25 15:42 UA Bilirubin 0 mg/dL Last Edit by Deya Johnson [facility] on 02/27/25 15:42 UA Glucose 0 mg/dL Last Edit by Deya Johnson [facility] on 02/27/25 15:42 Results Reviewed Results Reviewed: Laboratory Last Values Urine pH (Auto) 5.0 02/27/25 15:41 Specific [place] (Auto) 1.020 02/27/25 15:41 Urine Protein (Auto) 15 mg/dL 02/27/25 15:41 Glucose (UA)(Auto) 0 mg/dL 02/27/25 15:41 Urine Ketones (Auto) Negative 02/27/25 15:41 Urine Blood (Auto) 0 Santino/uL 02/27/25 15:41 Urine Nitrite (Auto) Negative 02/27/25 15:41 Urine Bilirubin (Auto) 0 mg/dL 02/27/25 15:41 Urine Urobilinogen (Auto) 0.2 mg/dL 02/27/25 15:41 Leukocyte Esterase (Auto) 0 Gay/uL 02/27/25 15:41 Assessment & Plan Assessment & Plan (1) Urinary frequency: Code(s): R35.0 - Frequency of micturition Category: Medical (2) Nocturia associated with benign prostatic hyperplasia: Code(s): N40.1 - Benign prostatic hyperplasia with lower urinary tract symptoms; R35.1 - Nocturia Category: Medical Plan Trial low-dose daily tadalafil for bladder stability Orders: Orders Prostate Specific Antigen Today N40.1 - Benign prostatic hyperplasia with lower urinary tract symptoms, R35.1 - Nocturia Testosterone, Total Today N40.1 - Benign prostatic hyperplasia with lower urinary tract symptoms, R35.1 - Nocturia Medications: New tadalafil 5 mg PO DAILY 90 tabs 0RF 90 days N40.1 - Benign prostatic hyperplasia with lower urinary tract symptoms, R35.1 - Nocturia Patient Instructions: This note is constructed using voice recognition software. While every effort has been made to ensure accuracy cloth doffer errors may have been included. Imaging studies, laboratory and physical exam results were discussed and reviewed in detail. No major barriers to patient understanding were identified. An opportunity to ask questions regarding the treatment plan was provided. All questions were answered. The patient expressed understanding and agreement with the above treatment plan. The patient is aware they should contact our office by phone for worsening of their current condition or the appearance of new urologic symptoms. Compliance is encouraged with any medications and followup testing that is ordered. It is a privilege to participate in the urologic care of your patient. If you have any questions or concerns regarding treatment for the above conditions, or other urologic issues, please do not hesitate to contact me. The office telephone contact is [phone]. Sincerely, Dr Xavi Stephen MD, [facility] - Urology Compassionate Specialist Care for the Genitourinary System Coding Level of Care Code New Pt Level 4 (60751) Diagnoses Urinary frequency R35.0 Nocturia associated with benign prostatic hyperplasia N40.1; R35.1 CPT Codes Post Residual Void - PVR CPT Code: 06362-Hfnc Void Residual by ultrasound ([id number])
--- OUTSIDE RECORDS SUMMARY | 2025-02-27 19:01 | XMS_ITS | Data Portability ---
Author Organization [facility] [address] Address [address] [place] [address] Care Team Providers Care Director Of Content Marketing Name Role Phone [facility] Primary Care Provider [phone] Assessment No assessment recorded. Plan of Treatment Reminders Order Date Submit Date Provider Last Modified By Organization Details Last Modified Time Details Appointments None recorded. Lab rapid SARS CoV 2 Ag, QL IA, respiratory specimen 2022 023 [place] [address] [address] [address], [address] [place], [address], 3 10:07:31 rapid flu (A+B) 2022 023 [place] [address] [address] [address], [address] [place], [address], 3 10:07:31 Referral None recorded. Procedures None recorded. Surgeries None recorded. Imaging None recorded. Medication Orders albuterol sulfate HFA 90 mcg/actuati on aerosol inhaler 2022 023 [id number], [address], [place], [id number], 3 10:07:38 Zithromax Z-Koko 250 mg tablet 2022 023 [id number], [address], [place], [id number], 3 10:07:43 prednisone 20 mg tablet 2022 023 [id number], [address], [place], [id number], 10:07:39 Patient TargetsNo targets recorded. Patient Instructions Encounter Date Encounter Id Patient Instructions Last Modified By Organization Details Last Modified Time 06/04/2022 [id number] cough: care instructions [email or web address] Not available 06/04/2022 10:07:31 Reason for Referral None Reported. Results Created Date Observation Date Name Description Value Unit Range Abnormal Flag Note LastModifiedBy Organization Detail LastModifiedTime 06/05/1906/04/2022 rapid flu (A+B) Unknown Analyte Normal = Negati ve Not Available [address] [place], [address], 06/04/2022 09:32:41 06/05/1906/04/2022 rapid flu (A+B) Unknown Analyte negati ve Not Available [address] [place], [address], 06/04/2022 09:32:41 06/05/19 23 06/04/2022 rapid flu (A+B) Unknown Analyte Normal = Negati ve Not Available [address] [place], [address], 06/04/2022 09:32:41 06/05/19 23 06/04/2022 rapid flu (A+B) Unknown Analyte negati ve Not Available [address] [place], [address], 06/04/2022 09:32:41 06/05/19 23 06/04/2022 rapid SARS CoV 2 Ag, QL IA, respi rator y speci men Unknown Analyte Normal =Negat ken Not Available [address] [place], [address], 06/04/2022 09:18:12 06/05/19 23 06/04/2022 rapid SARS CoV 2 Ag, QL IA, respi rator y speci men Unknown Analyte negati ve Not Available [address] [facility], [place], [address], 06/04/2022 09:18:12 Result Notes None recorded. Problems Name Problem SNOMED Code Status Onset Date Resolution Date Notes Provider Name and Address Organization Details Recorded Time Disorder of thyroid gland 19269727 Active JULITO JAIME-RIVE RA null, [place] - [facility] 3 09:29:34 Cardiac arrhythmia 576485517 Active JULITO JAIME-RIVE RA null, [place] - [facility] 3 09:29:51 Hypercholester olemia 30698997 Active JULITO JAIME-RIVE RA null, PA - [facility] 3 09:30:05 Hypertensive disorder 41070236 Active JULITO JAIME-RIVE RA null, PA - [...] Name and Address Organization Details Recorded Time 22071209 Substance with sulfonami de structure and antibacte rial mechanism of action (substanc e) medicatio n hives Not available Not available 06/04/2022 [id number] SNOMED JULITO JAIME-RIVE RA null, [place] - [facility] 3 09:24:45 [id number] codeine medicatio n other Not available Not [...] mass index (BMI) Body weight Oxygen saturation Pain severity - 0-10 verbal numeric rating [Score] - Reported Heart rate Respiratory rate Body temperature Systolic And Diastolic Provider Name and Address Organization Details Last Updated DateTime 3 190.5 cm 31.9 kg/m2 694224. 05 g 98 % 0 50 /min 18 /min 98.6 [degF] 120/90 mm[Hg] JULITO CRUZ - [facility] 3 09:23:43 Social History Question Answer Notes LastModified by Organizat ion Details LastModified Time Tobacco Smoking Status Current Every Day Smoker JULITO JAIME-JIMENEZ null, [place] - [facility] 06/04/2022 09:31:58 How Much Tobacco Do You Smoke? 1 PPD Information not available 06/04/2022 Have You Recently Traveled Abroad? No Information not available 06/04/2022 Sex: Unknown Functional Status Question Answer Note LastModified by Organizat ion Details LastModified Time Do you use any illicit or recreational drugs? No Information not available 06/04/2022 Do you or have you ever used any other forms of tobacco or nicotine? No Information not available 06/04/2022 What is your level of alcohol consumption? Occasional Information not available 06/04/2022 Mental Status None recorded. Family History Relationship [...] PA - [facility] 06/04/2022 09:24:23 Tdap 04/23/200 8 completed JULITO JAIME-JIMENEZ null, PA - [...] Diagnosis SNOMED-CT Code Diagnosis ICD10 Code Diagnosis IMO Codes Diagnosis Note [id number] [address] [place] [address] 07/18/2017 12:32:38 07/18/2017 13:54:56 [id number] Darlene Wolfe MD [address] [place] [address] 06/04/2022 08:52:15 06/04/2022 10:10:24 Acute bronchitis 32233620 J20.8 Heavy smoker with no diagnosis COPD.Wheez [...] Recorded Advance Directives Directive None Recorded Payers Insurance Date Sequence Insurance Name Policy Number Policy Smith Covered Member ID Smith Member ID Guarantor Name 06/04/2022 1 LISET (PPO) [id number] Allan Mcintosh [id number] Allan Mcintosh 06/04/2022 1 MINDA [id number] Allan Mcintosh [id number] Allan Mcintosh Notes Date Note Type Note Provider Name and Address Organization Details Recorded Time 06/04/2022 text/html COVID-19 SymptomsReported by Patient CoughReported by PatientHPIFor context, patient reportssmoker. For associated symptoms, patient reportsfever,wheezing , andcan't get a deep breathbut reportsno chills,no chest pain,no nausea,no vomiting, andno edema. For quality, patient reportsintermittent. For severity, patient reportsmoderate. For duration, patient terxwjh28 days. For timing, patient reportsgradual. Darlene Wolfe MD [address] [place], [address], [place] - [facility] 06/04/2022 10:10:01
--- OUTSIDE RECORDS SUMMARY | 2025-02-27 19:01 | XMS_ITS | Clinical Summary ---
Author Organization [facility] Address [address] [facility] [address] [facility] [address] [place] [address] Phone Care Team Providers Care Vessel Slag Worker Name Role Phone Erick Schaefer NP Primary Care Provider [phone] Allergies Active Allergy Reactions Criticality Noted Date [...] 01/18/2023 Overview (01/18/2023): PEARSON 02/05/12 22.8 millicuries ([facility]) S/p PEARSON 02/2012 22.8 millicuries for [...] Vaccine (#1) 2024 [place] [id number] [facility] Care Teams Vessel Slag Worker Relationship Specialty Start Date End Date Erick Schaefer NP 1960 [place], [place] PCP - General Nurse Practitioner 10/14/22
== END 2025-02-27 16:33 | disposition home or self-care (01) ==
LOC: HO.HUSH 15:25
PROVIDERS: PCP Nurse Practitioner Family; Visit Provider Urology
DX: N40.1 Benign prostatic hyperplasia with lower urinary tract symptoms (principal); R35.0 Frequency of micturition; R35.1 Nocturia
CPT/HCPCS: 99214

== ENCOUNTER → 2025-02-27 15:24 | Outpatient (BNVA) | payer BC, SELFPAY | PROVIDERS: PCP Nurse Practitioner Family; Visit Provider Urology | DX: N40.1 Benign prostatic hyperplasia with lower urinary tract symptoms (principal) | CPT/HCPCS: 51798 ==